=== PATIENT | female | born 1940 | race Caucasian/White ===

== ENCOUNTER → 2017-02-10 20:34 | Outpatient (CLI) | payer MEDICARE, MEDICAID ==
[2016-05-27 00:41] VITALS: BMI 21.8
[~2017-02-10 20:34] MED LIST: AMBIEN5 MG PO; ASPIRIN81 MG PO; BACTRIM DS TABL1 TAB PO; BAYER CHEWABLE81 MG PO; BENTYL 20 MG TA20 MG PO; BETAPACE 120 M120 MG PO; CALCIUM 600 +1 EAC3 PO; CELEXA40 MG PO; CODEINE; DIFLUCAN100 MG PO; DYAZIDE 37.5/251 CAP PO; ELIQUIS2.5 MG PO; HYDROCODON-ACE1 EAC7 PO; K-DUR20 MEQ PO; KLOR-CON M2020 MEQ PO; LASIX40 MG PO; LEVAQUIN750 MG PO; LOMOTIL TABLET1 TAB PO; LOPRESSOR25 MG PO; MECLIZINE HCL25 MG PO; MOBIC7.5 MG PO; NEURONTIN 300300 MG PO; NORVASC10 MG PO; PERCOCET 10/3251 TA1 PO; PLAVIX75 MG PO; PRILOSEC20 MG PO; PROTONIX40 MG PO; QUESTRAN PACK4 G/PKT PO; RESTORIL15 MG PO; SYNTHROID125 MCG PO; TOPAMAX25 MG PO; TRIAMTERENE-HCT1 TA1 PO; TYLENOL #4 W/CO1 TAB PO; ZOFRAN4 MG PO
== END | disposition home or self-care (01) ==
LOC: D.LABREF 20:34
DX: M25.512 Pain in left shoulder (principal); Z11.8 Encounter for screening for other infectious and parasitic diseases

== ENCOUNTER 2017-03-02 05:15 | Inpatient (IN) | payer MEDICARE, MEDICAID ==
[2017-02-26 14:12] LABS: APPEARANCE CLEAR (CLEAR); BILIRUBIN NEGATIVE (NEGATIVE); COLOR YELLOW (YELLOW); GLUCOSE NEGATIVE (NEGATIVE); KETONE NEGATIVE (NEGATIVE); LEUKOCYTE ESTERASE NEGATIVE (NEGATIVE); NITRITE NEGATIVE (NEGATIVE); PROTEIN NEGATIVE (NEGATIVE); SPECIFIC GRAVITY 1.015 (1.005-1.020); UROBILINOGEN NORMAL (NORMAL)
[2017-02-26 14:37] LABS: BASOPHILS 0.2 % (0-2); EOSINOPHILS 4.6 % (0-7); HEMATOCRIT 33.8 % (36.0-48.0); HEMOGLOBIN 10.8 g/dL (12-16); IMMATURE GRANULOCYTES 0.5 % (0-5); LYMPHOCYTES 16.9 % (15-50); MCH 31.3 pg (26.0-34.0); MEAN PLATELET VOLUME 10.2 fL (7.4-10.4); NEUTROPHILS 68.8 % (40-80); RBC 3.45 10x6/uL (4.00-5.40); RDW 14.4 % (11.5-14.5); WBC 8.1 10x3/uL (4.8-10.8)
[2017-02-26 14:44] LABS: ANION GAP 11.3 mmol/L (8-16); CALCIUM 8.4 mg/dL (8.5-10.1); CARBON DIOXIDE 27.2 mmol/L (21.0-32.0); CREATININE - SERUM 1.5 mg/dL (0.6-1.3); POTASSIUM - SERUM 4.5 mmol/L (3.5-5.1)
[2017-02-26 14:46] LABS: APTT 23.9 SECONDS (22.8-39.4); INR 1.02 (0.85-1.17); PROTIME 13.3 SECONDS (11.6-15.0)
[2017-02-26 14:53] LABS: PLATELET COUNT 314 10x3/uL (130-400)
[~2017-03-02] VITALS: Ht 149.9 cm; Wt 61.4 kg
[2017-03-02] VITALS (12 sets, daily range): BP systolic 124–163; BP diastolic 50–87; Ht 149.9 cm; Wt 61.4 kg
[~2017-03-02 05:15] MED LIST changes: +CARAFATE1 G PO; +REQUIP0.5 MG PO; +ZANAFLEX4 MG PO
--- NOTE | 2017-03-02 07:45 | NUR ---
0745 NO CHANGES IN HISTORY SINCE PRE-ASSESSMENT
--- NOTE | 2017-03-02 11:16 | NUR ---
CARDIAC RYTHM APPEARS NOW PACED
--- NOTE | 2017-03-02 11:21 | NUR ---
PRE OP BP 160/90
--- NOTE | 2017-03-02 12:22 | NUR ---
SET PATIENT UP FOR LUNCH. CHOPPED HER CHICKEN. PATIENT DENIES NEEDS. BED ALARM ON. SITTING UP AT A 90 DEGREE ANGLE IN BED. SCD TO RIGHT LEG.
--- NOTE | 2017-03-02 19:00 | NUR ---
PATIENT SLEEPING SUPINE IN BED. HOB 30 DEGREES. RR EVEN AND UNLABORED. O2 @ 2L VIA NC. 0 S/S OF DISTRESS. DRESSING TO LEFT SHOULDER CDI WITH SLING TO LUE. CONT. PULSE OX ON. RIBEIRO SECURED WITH STATLOCK AND DRAINING TO GRAVITY. IV TO RIGHT HAND PATENT WITH NO REDNESS OR SWELLING. SCD TO RLE. B/A ON. SRX2. BED LOW. CALL LIGHT WITHIN REACH.
--- NOTE | 2017-03-02 23:30 | NUR ---
ASSESSMENT COMPLETE. NIGHTTIME MEDS GIVEN.
[2017-03-03] VITALS (7 sets, daily range): BP systolic 110–143; BP diastolic 51–62
--- NOTE | 2017-03-03 01:30 | NUR ---
NORCO GIVEN FOR AN 05/28. WILL REASSESS.
--- NOTE | 2017-03-03 06:40 | NUR ---
MORNING MEDS GIVEN. NORCO GIVEN FOR PAIN. NO OTHER NEEDS AT THIS TIME.
--- NOTE | 2017-03-03 07:15 | NUR ---
PATIENT RECEIVED IN MID [place] POSITION RESTING WITH EYES CLOSED. RESPIRATIONS EVEN AND UNLABORED. SIDE RAILS UP X2. BED IN LOW POSITION. CALL LIGHT IN REACH.
--- NOTE | 2017-03-03 08:23 | NUR ---
PATIENT SITTING UP ON SIDE OF BED EATING BREAKFAST. TOLERATING WELL. SCHEDULED MEDICATION ADMINISTERED. IV TO RIGHT SALINE LOCKED PER ORDERS. DENIES NEEDS. BED IN LOW POSITION. CALL LIGHT IN REACH.
--- NOTE | 2017-03-03 11:05 | NUR ---
PATIENT SITTING UP IN CHAIR AT BEDSIDE. RESTING WITH EYES CLOSED. RESPIRATIONS EVEN AND UNLABORED. WAKES EASY. SCHEDULED MEDICATION ADMINISTERED. CALL LIGHT IN REACH. DENIES NEEDS.
--- NOTE | 2017-03-03 14:00 | NUR ---
PATIENT ALERT IN BED. NO SIGNS OF DISTRESS NOTED. C/O PAIN 06/28. NORCO PER PRN ORDER. RIGHT HAND IV FLUSHED PER ORDERS. IV PATENT. NO REDNESS OR INFLAMMATION NOTED. FLUSHES EASY. WELL TOLERATED. SIDE RAILS UP X2. BED IN LOW POSITION. CALL LIGHT IN REACH. WILL CONTINUE TO MONITOR.
--- NOTE | 2017-03-03 16:20 | NUR ---
PATIENT IN BED RESTING QUIETLY WITH EYES CLOSED. RESPIRATIONS EVEN AND UNLABORED. SIDE RAILS UP X2. BED IN LOW POSITION. CALL LIGHT IN REACH.
--- NOTE | 2017-03-03 16:54 | NUR ---
Patient Name: JOAO HOLDER Admission Status: Elective Accout number: [id number] Admission Date: 03-02-2017 : 1939 Admission Diagnosis: Attending: OSMAN Current LOS: 1 Anticipated DC Date: 03-05-2017 Planned Disposition: [facility] Facility Primary Insurance: [employer] MEDICARE ADV Discharge Planning Comments: CM MET WITH PATIENT. PT STATES SHE LIVE AT HOME WITH HER SON SHAYY CAMACHO AND MARY BEARD ([phone]) ONE OF WHICH WHO WILL DRIVE PT HOME. PT STATES THAT SHE HAS A RAMP TO HER HOUSE. SHE CURRENTLY HAS A LEFT LEG PROSTHETIC ALONG WITH A WALKER, SHOWER CHAIR, ELEVATED TOILET SEAT. PT IS DIABETIC AND STATES SHE HAS AND KNOW HOW TO USE THE GLUCOMETER. PT SIGNED THE JUN FORM WITH [facility] AND THE JUN FORM FOR [facility]. [facility]CP [facility] WILL CONTINUE TO FOLLOW WITH DC NEEDS AND PLANS. PCP: [facility] GO [address] [place] [address] [phone] SHAYY CAMACHO (SON) KISHA CAMACHO (MARY) [phone] Service Car Operator:CATRINA BIRCH Is the patient Alert and Oriented? Yes 0 * How many steps to enter\exit or inside your home? RAMP 0 * PCP DR ESPAÑA 0 * Pharmacy [facility] [address] * Preadmission Environment Home with Family 0 * ADLs Partial Dependent 0 * Partial ADLs (Assistance needed) Ambulation Bathing Dressing Medication Management Toileting 0 * Equipment Elevated [place] Seat Glucometer Other Rolling Walker Shower Chair 0 * Other Equipment PROSTHETIC LEFT LEG 0 * List name and contact numbers for known caregivers / representatives who currently or will assist patient after discharge: SHAYY CAMACHO (SON) MARY - KISHA CAMACHO [phone] 0 * Community resources currently utilized None 0 * Additional services required to return to the preadmission environment? Yes 0 * Can the patient safely return to the preadmission environment? No 0 * Has this patient been hospitalized within the prior 30 days at any hospital? No 0
--- NOTE | 2017-03-03 19:00 | NUR ---
PATIENT SLEEPING SUPINE IN BED. HOB 30 DEGREES. RR EVEN AND UNLABORED. 0 S/S OF DISTRESS. SLING TO LUE WITH DRESSING CDI. RIBEIRO SECURED WITH STATLOCK AND DRAINING TO GRAVITY. CONT. PULSE OX ON. TELEMETRY ON. SCD TO RLE. IV TO RIGHT HAND S/L WITH NO REDNESS OR SWELLING. B/A ON. SRX2. BED LOW. CALL LIGHT WITHIN REACH.
--- NOTE | 2017-03-03 21:00 | NUR ---
PATIENT AROUSES TO VOICE. NIGHTTIME MEDS GIVEN. DENIES ANY OTHER NEEDS.
--- NOTE | 2017-03-04 03:10 | NUR ---
NORCO GIVEN FOR PAIN. WILL REASSESS.
[2017-03-04 06:30] VITALS: BP 132/51
--- NOTE | 2017-03-04 07:41 | NUR ---
AWAKE AND ALERT. ORIENTED X3. NO C/O AT THIS TIME. REPORTS LEFT SHOULDER IS VERY SORE AND PAINFULL. LUNGS ARE CLEAR BILATERALLY, NO COUGH NOTED. REPORTS PRODUCTIVE COUGH. WILL MONITOR. SKIN IS INTACT WITHOUT REDNESS EXCEPT INCISION TO LEFT SHOULDER WHICH HAS A DRY INTACT DRESSING IN PLACE. NEURO CHECKS WNL.V TO RIGHT HAND IS PATENT WITHOUT REDNESS AT INSERTION SITE. SCD IN PLACE TO RIGHT LEG. DENIES NEEDS.
[2017-03-04 08:01] VITALS: BP 143/55
[2017-03-04] MEDS ORDERED: HYDROCODONE-APA1 TAB PO (08:11)
--- NOTE | 2017-03-04 10:00 | NUR ---
C/O UPSET STOMACH. ASKED TO HAVE BS CHECKED "IT;S USUALLY HIGH WHEN I FEEL THIS WAY." FSBS 143 AT THIS TIME. WILL CONTINUE TO MONITOR.
--- NOTE | 2017-03-04 10:23 | NUR ---
03/04/2017 10:19 DCP: Discharge Planning Patient Name: JOAO HOLDER Admission Status: Elective Accout number: [id number] Admission Date: 03-02-2017 : 1940 Admission Diagnosis:PAIN DUE TO INTERNAL ORTHOPEDIC PROSTH RONN/SAMANTHA, INPAUL Attending: OSMAN Current LOS: 2 Anticipated DC Date: 03-05-2017 Planned Disposition: Senior Care Facility Primary Insurance: [employer] MEDICARE ADV Discharge Planning Comments: CM MET WITH PT. PT REQUESTING TO GO TO [facility]. [facility] SPOKE TO PRESLEY BARRIOS RN
--- NOTE | 2017-03-04 11:39 | NUR ---
REQUESTED AND GIVNE ONE HYDROCODONE PO FOR C/O LEFT ELBOW PAIN LEVEL 8. WILL MONITOR.
--- NOTE | 2017-03-04 12:30 | NUR ---
SITTING UP IN CHAIR AT BEDSIDE EATING LUNCH. REPORTS GOOD PAIN RELIEF WITH USE OF HYDROCODONE. NO NEEDS NOTED.
[2017-03-04 12:46] VITALS: BP 172/73
--- NOTE | 2017-03-04 14:46 | NUR ---
RESTING QUIETLY IN BED. DENIES NEEDS.
[2017-03-04 16:17] VITALS: BP 144/56
--- NOTE | 2017-03-04 16:45 | NUR ---
REQUESTED AND GIVEN ONE HYDROCODONE PO FOR C/O LEFT SHOULDER/ELBOW PAIN LEVEL 6. WILL MONITOR.
--- NOTE | 2017-03-04 19:13 | NUR ---
ATE ONLY A SMALL AMOUNT OF SUPPER. REPORTED NOT VERY HUNGRY. NO CHANGES NOTED. DENIES NEEDS.
[2017-03-04 20:00] VITALS: BP 135/67
[2017-03-05] VITALS: BP 156/62
[2017-03-05 04:00] VITALS: BP 142/63
[2017-03-05 07:38] VITALS: BP 150/49
--- NOTE | 2017-03-05 08:04 | NUR ---
AWAKE AND ALERT.ORIENTED X3. C/O LEFT SHOULDER PAIN LEVEL 6 THIS AM. GIVEN ONE HYDROCODONE PO FOR SAME. WILL MONITOR. LUNGS ARE CLEAR BILATERALLY, NO COUGH NOTED. SKIN IS INTACT WITHOUT REDNESS EXCEPT INCISION TO LEFT SHOULDER WHICH HAS A DRY INTACT DRESSING IN PLACE. RIBEIRO PATENT WITH CLEAR YELLOW URINE. SLING IMMOBILIZER IN PLACE TO LEFT ARM. SL TO RIGHT HAND PATENT WITHOUT REDNESS AT ISNERTION SITE. DENIES NEEDS.
--- NOTE | 2017-03-05 09:33 | NUR ---
UP WITH PT. AMBULATED IN HALLWAY WITH RW.
--- NOTE | 2017-03-05 12:09 | NUR ---
REQUESTED AND GIVEN ONE HYDROCODONE PO FOR C/O LEFT ARM PAIN LEVEL 6. WILL MONITOR. SITTING UP IN CHAIR AT BEDSIDE.
[2017-03-05 12:22] VITALS: BP 151/52
[2017-03-05 14:46] VITALS: BP 124/55
--- NOTE | 2017-03-05 16:15 | NUR ---
REQUESTED AND GIVEN ONE HYDROCODONE PO FOR C/O LEFT ARM PAIN LEVEL 7. WILL MONITOR.
--- NOTE | 2017-03-05 17:06 | NUR ---
OT NOTE: PT COMPLETED DYNAMIC SITTING BALANCE WITH SBA. PT COMPLETED RUE AROM EXS FOR INCREASED I WITH ADLS. PT COMPLETED BED MOB WITH CGA. PT COMPLETED TRANSFER WITH SBA. THANK YOU, DEYVI CALERO/Tahira
--- NOTE | 2017-03-05 18:09 | NUR ---
ATE ALL OF SUPPER WITH SET UP ASSISTANCE. NO C/O AT THIS TIME. DENIES NEEDS. NO CHANGES NOTED.
--- NOTE | 2017-03-05 19:30 | NUR ---
PT RECEIVED SITTING UP IN BED WATCHING TELEVISION. PT DENIES NEEDS AT THIS TIME. CALL LIGHT AND H2O IN PT REACH. BED IN LOW POSITION. SIDE RAILS UP X2.
[2017-03-05 20:00] VITALS: BP 144/57
--- NOTE | 2017-03-05 22:46 | NUR ---
PT IS ALERT AND ORIENTED, ABLAE TO VERBALIZE NEEDS. SHE HAS A LEFT SHOULDER DRESSING FROM A ROTATOR REPAIR, SLING IN PLACE. AT THIS TIME SHE IS EATING PUDDING AND WATCHING TV. THE BED IS LOW, RAILS UP X'S 2 WITH THE CALL LIGHT AT HAND. NO NEEDS NOTED.
[2017-03-06] VITALS: BP 135/90
--- NOTE | 2017-03-06 01:30 | NUR ---
PT IV PULLED OUT. PT STATES, "I WAS TRYING TO READJUST AND IT JUST CAME OUT." PRESSURE APPLIED AND DRESSING PLACED. PT REQUESTS NOT TO HAVE IV RESITED AT THIS TIME D/T NO IV FLUIDS OR MEDS ORDERED AT THIS TIME.
[2017-03-06 04:00] VITALS: BP 131/52
[2017-03-06 07:51] VITALS: BP 147/60
--- NOTE | 2017-03-06 08:20 | NUR ---
AWAKE AND ALERT. ORIENTED X3. NO C/O AT THIS TIME. LUNGS ARE CLEAR BILATERALLY, NO COUGH NOTED. SKIN IS INTACT WITHOUT REDNESS EXCEPT INCISION TO LEFT SHOULDER WHICH HAS A DRY INTACT DRESSING IN PLACE. NO IV AT THIS TIME. SCD IN PLACE TO RIGHT LEG. DENIES NEEDS. BREAKFAST SERVED IN ROOM.
--- NOTE | 2017-03-06 10:31 | NUR ---
ASSISTED WITH BATH AND LINEN CHANGE PER STAFF. DENIES NEEDS.
[2017-03-06 12:00] VITALS: BP 156/67
--- NOTE | 2017-03-06 14:55 | NUR ---
CM REASSESSMENT NOTE: PATIENT IS DISCHARGING TO [facility] TO A SKILLED BED BY FACILITY [facility] TODAY.
--- NOTE | 2017-03-06 15:25 | NUR ---
REPORT CALLED TO JOHN EID RN AT [facility]. ALL QUESTIONS ANSWERED. DRESSING TO LEFT SHOULDER CHANGED PRIOR TO D/C. INCISION IS CLEAN DRY AND WELL APPROXIMATED WITH CLLIPS INTACT. DISCHARGED TO [facility] VIA THEIR TRANSPORT.
--- NOTE | 2017-03-07 14:20 | OP ---
PATIENT NAME: JOAO HOLDER MEDICAL RECORD: [id number] :39 LOCATION:D.MS [id number] ADMISSION DATE:03/02/17 SURGEON: ALISHA JENKINS MD DATE OF OPERATION: 03/02/2017 PREOPERATIVE DIAGNOSIS: Painful left total shoulder arthroplasty. POSTOPERATIVE DIAGNOSIS: Painful left total shoulder arthroplasty. PROCEDURE: Revision of total shoulder arthroplasty to reverse total shoulder arthroplasty. SURGEON: Alisha Jenkins MD. ANESTHESIA: General. INTRAOPERATIVE COMPLICATIONS: None. SUMMARY OF PATHOLOGIC FINDINGS: The patient had complete breakdown of her rotator cuff, obviating the need for revision to reverse total shoulder arthroplasty. IMPLANTS USED: Arthrex total shoulder arthroplasty system. IMPLANT REMOVED: Tornier total shoulder. OPERATIVE SUMMARY IN DETAIL: After obtaining the appropriate preoperative orthopedic surgery consents as well as anesthetic consultation, evaluation and clearance, the patient was brought to the operating room and placed on the operating table in supine position. After general laryngeal mask was administered, the patient was placed in the beach chair position. All pressure points were padded. She was held firmly to the operating table using the vacuum pack suction system. Left upper extremity and shoulder were then prepped and draped in routine sterile fashion. The arm was held in Trimano arm holding device. A routine deltopectoral incision was taken down to the level of clavipectoral fascia, which was incised. Of note, the subscapularis and infraspinatus was completely torn all the way back to the teres minor. At this point, the head and stem were removed with little degree of difficulty, no bone loss, as was the glenoid. The glenoid was also removed with little degree of difficulty, no bone loss. Excess cement was removed from behind the previously removed glenoid component. The wound was then irrigated. At this point, central guide pin was placed and the appropriate reaming for the metaglene was done. Preparation for the metaglene was followed by tamping the metaglene into place. Central screw was deployed with good bite as were the peripheral locking screws. Glenosphere was then tamped into place on the baseplate with good locking about the peripheral Franz taper. Attention was then turned to the humerus. Serial and sequential reaming and broaching were done for the long stem, 135-degree, size 6 Arthrex reverse system. Trials were undertaken. Following this, the long stem was cemented into place and then a captured [address]. This resulted in excellent reconstruction. The patient did have an area of looseness about the proximal aspect of the shoulder where she had a fracture. A single Dall-Miles cable was placed about it for rotational stability. This resulted in excellent rotational stability. At this point, the wound was copiously irrigated and closed using #1 Vicryl followed by 2-0 Vicryl and skin alfredo. Sterile dressings were applied. The OPERATIVE REPORT [id number] JOAO HOLDER patient was awakened, taken to recovery room in stable condition. All final needle and sponge counts were correct. TRANSINT:[id number] Voice Confirmation ID: [id number] DOCUMENT ID: [id number] ALICE RAMIREZ, ALISHA GALVAN at 1420 CC: [id number] DICTATION DATE: 03/06/17926 PIGMENT GRINDER: 03/06/17 1258 DIS IN 03/06/17 [facility] [address] [place] [address]
== END 2017-03-06 15:27 | DRG 483 ==
LOC: D.MS 05:15 → D.SDCHOLD 05:15 → D.MS 11:23
PROVIDERS: ADMIT Orthopaedic Surgery
PROC: 0RPJ0JZ Removal of Synthetic Substitute from Right Shoulder Joint, Open Approach (ICD-10-PCS; 2017-03-02)
PROC: 0RRJ00Z Replacement of Right Shoulder Joint with Reverse Ball and Socket Synthetic Substitute, Open Approach (ICD-10-PCS; principal; 2017-03-02 07:45)
DX: T84.84XA Pain due to internal orthopedic prosthetic devices, implants and grafts, initial encounter (principal); I25.10 Atherosclerotic heart disease of native coronary artery without angina pectoris; I12.9 Hypertensive chronic kidney disease with stage 1 through stage 4 chronic kidney disease, or unspecified chronic kidney disease; E11.22 Type 2 diabetes mellitus with diabetic chronic kidney disease; N18.3 Chronic kidney disease, stage 3 (moderate)

== ENCOUNTER → 2017-11-30 11:23 | Outpatient (CLI) | payer MEDICARE, MEDICAID ==
[2017-03-02 11:50] VITALS: BMI 27.3
[~2017-11-30 11:23] MED LIST changes: +HYDROCODONE-APA1 TAB PO
== END | disposition home or self-care (01) ==
LOC: D.CT 11:23
DX: M53.3 Sacrococcygeal disorders, not elsewhere classified (principal)

== ENCOUNTER 2018-01-08 13:33 | Inpatient (IN) | payer MEDICARE, MEDICAID ==
[~2018-01-08] VITALS: Ht 139.7 cm; Wt 62.1 kg
[2018-01-08 14:12] LABS: BASOPHILS 0.1 % (0-2); EOSINOPHILS 0 % (0-7); HEMATOCRIT 34.8 % (36.0-48.0); HEMOGLOBIN 11.1 g/dL (12-16); IMMATURE GRANULOCYTES 0.5 % (0-5); LYMPHOCYTES 11.2 % (15-50); MCH 28.1 pg (26.0-34.0); MCHC 31.9 g/dL (31.0-37.0); MCV 88.1 fL (80.0-100.0); MEAN PLATELET VOLUME 9.8 fL (7.4-10.4); NEUTROPHILS 80.2 % (40-80); RBC 3.95 10x6/uL (4.00-5.40); RDW 15.8 % (11.5-14.5); WBC 9.9 10x3/uL (4.8-10.8)
[2018-01-08 14:31] LABS: PLATELET COUNT 393 10x3/uL (130-400)
[2018-01-08 14:41] LABS: ALBUMIN 3.7 g/dL (3.4-5.0); ALKALINE PHOSPHATASE 176 U/L (46-116); ALT (SGPT) 27 U/L (10-68); BILIRUBIN - TOTAL 0.77 mg/dL (0.2-1.3); CALC OSMOLALITY 267 mosm/kg (275-300); CALCIUM 8.9 mg/dL (8.5-10.1); CARBON DIOXIDE 29.6 mmol/L (21.0-32.0); CHLORIDE - SERUM 98 mmol/L (98-107); CREATININE - SERUM 1.2 mg/dL (0.6-1.3); GLUCOSE 104 mg/dL (74-106); POTASSIUM - SERUM 3.3 mmol/L (3.5-5.1); PROTEIN - SERUM 7.8 g/dL (6.4-8.2); SODIUM 133 mmol/L (136-145); UREA NITROGEN 18 mg/dL (7-18); eGFR NON AFRICAN AMERICAN 46 mL/min (90-120)
[2018-01-08 14:51] LABS: AMYLASE - SERUM 54 U/L (25-115); CKMB 0.8 U/L (0.0-3.6); LIPASE 203 U/L (73-393); MAGNESIUM - SERUM 2.2 mg/dL (1.8-2.4)
[2018-01-08 14:52] LABS: TROPONIN-I < 0.017 ng/mL (0.000-0.060)
[2018-01-08 15:23] LABS: APPEARANCE CLEAR (CLEAR); BILIRUBIN NEGATIVE (NEGATIVE); COLOR YELLOW (YELLOW); GLUCOSE NEGATIVE (NEGATIVE); KETONE NEGATIVE (NEGATIVE); NITRITE NEGATIVE (NEGATIVE); PROTEIN TRACE mg/dL (NEGATIVE); UROBILINOGEN NORMAL (NORMAL)
[2018-01-08 15:26] LABS: BACTERIA FEW /hpf (NONE SEEN)
[2018-01-08 21:47] VITALS: BP 165/67
[2018-01-08 22:21] VITALS: BP 165/67; BMI 31.9
[2018-01-09 02:19] VITALS: BP 165/67
[2018-01-09 04:52] LABS: BASOPHILS 0.1 % (0-2); EOSINOPHILS 0.1 % (0-7); HEMATOCRIT 31.7 % (36.0-48.0); HEMOGLOBIN 10.1 g/dL (12-16); IMMATURE GRANULOCYTES 0.7 % (0-5); LYMPHOCYTES 10.4 % (15-50); MCH 27.7 pg (26.0-34.0); MCHC 31.9 g/dL (31.0-37.0); MCV 87.1 fL (80.0-100.0); MEAN PLATELET VOLUME 10.3 fL (7.4-10.4); MONOCYTES 10.6 % (2-11); NEUTROPHILS 78.1 % (40-80); PLATELET COUNT 375 10x3/uL (130-400); RBC 3.64 10x6/uL (4.00-5.40); RDW 15.8 % (11.5-14.5); WBC 10.3 10x3/uL (4.8-10.8)
[2018-01-09 05:16] LABS: ALBUMIN 3.2 g/dL (3.4-5.0); ANION GAP 13.8 mmol/L (8-16); BILIRUBIN - TOTAL 0.69 mg/dL (0.2-1.3); CALCIUM 8.5 mg/dL (8.5-10.1); CARBON DIOXIDE 24.2 mmol/L (21.0-32.0); CREATININE - SERUM 1.2 mg/dL (0.6-1.3)
[2018-01-09 06:04] VITALS: BP 164/61
[2018-01-09 07:05] VITALS: BP 183/69
[2018-01-09 10:57] LABS: PHOSPHOROUS 3.6 mg/dL (2.5-4.9)
[2018-01-09 11:02] VITALS: BP 188/62
[2018-01-09 14:12] VITALS: Ht 139.7 cm; Wt 62.1 kg
[2018-01-09 15:00] VITALS: BP 178/62
[2018-01-09 22:04] VITALS: BP 182/72
[2018-01-10 00:46] VITALS: BP 120/43
[2018-01-10 05:19] VITALS: BP 149/64
[2018-01-10 06:15] LABS: BASOPHILS 0.1 % (0-2); EOSINOPHILS 0.1 % (0-7); HEMATOCRIT 29.3 % (36.0-48.0); HEMOGLOBIN 9.2 g/dL (12-16); IMMATURE GRANULOCYTES 0.7 % (0-5); LYMPHOCYTES 18.7 % (15-50); MCH 27.7 pg (26.0-34.0); MCHC 31.4 g/dL (31.0-37.0); MCV 88.3 fL (80.0-100.0); MEAN PLATELET VOLUME 9.8 fL (7.4-10.4); MONOCYTES 11.9 % (2-11); NEUTROPHILS 68.5 % (40-80); PLATELET COUNT 309 10x3/uL (130-400); RBC 3.32 10x6/uL (4.00-5.40)
[2018-01-10 06:19] LABS: WBC 6.8 10x3/uL (4.8-10.8)
[2018-01-10 06:35] LABS: ALBUMIN 2.9 g/dL (3.4-5.0); ANION GAP 13.3 mmol/L (8-16); BILIRUBIN - TOTAL 0.57 mg/dL (0.2-1.3); CALCIUM 8.3 mg/dL (8.5-10.1); CARBON DIOXIDE 20.9 mmol/L (21.0-32.0); CREATININE - SERUM 1.2 mg/dL (0.6-1.3); POTASSIUM - SERUM 3.2 mmol/L (3.5-5.1); PROTEIN - SERUM 6.2 g/dL (6.4-8.2)
[2018-01-10 08:08] VITALS: BP 155/43
[2018-01-10 11:52] VITALS: BP 164/47
[2018-01-10 15:29] VITALS: BP 194/61
[2018-01-10 20:00] VITALS: BP 144/57
[2018-01-11 04:00] VITALS: BP 187/56
[2018-01-11 04:34] LABS: BASOPHILS 0.3 % (0-2); EOSINOPHILS 0.4 % (0-7); HEMATOCRIT 28.1 % (36.0-48.0); HEMOGLOBIN 8.9 g/dL (12-16); IMMATURE GRANULOCYTES 0.5 % (0-5); LYMPHOCYTES 10.9 % (15-50); MCH 27.8 pg (26.0-34.0); MCHC 31.7 g/dL (31.0-37.0); MCV 87.8 fL (80.0-100.0); MEAN PLATELET VOLUME 10.3 fL (7.4-10.4); MONOCYTES 10.3 % (2-11); NEUTROPHILS 77.6 % (40-80); PLATELET COUNT 289 10x3/uL (130-400); WBC 7.8 10x3/uL (4.8-10.8)
[2018-01-11 05:05] LABS: ANION GAP 15.5 mmol/L (8-16); BILIRUBIN - TOTAL 0.54 mg/dL (0.2-1.3); CARBON DIOXIDE 18.8 mmol/L (21.0-32.0); CREATININE - SERUM 1.1 mg/dL (0.6-1.3); POTASSIUM - SERUM 3.3 mmol/L (3.5-5.1); PROTEIN - SERUM 6.2 g/dL (6.4-8.2)
[2018-01-11 08:39] VITALS: BP 153/80
[2018-01-11 12:05] VITALS: BP 178/44
[2018-01-11 16:45] VITALS: BP 123/51
[2018-01-11 20:49] VITALS: BP 195/66
[2018-01-12 04:00] VITALS: BP 111/63
[2018-01-12 04:38] LABS: BASOPHILS 0.3 % (0-2); EOSINOPHILS 0.4 % (0-7); HEMATOCRIT 28.3 % (36.0-48.0); HEMOGLOBIN 8.9 g/dL (12-16); IMMATURE GRANULOCYTES 0.8 % (0-5); LYMPHOCYTES 14.8 % (15-50); MCH 27.6 pg (26.0-34.0); MCHC 31.4 g/dL (31.0-37.0); MCV 87.6 fL (80.0-100.0); MEAN PLATELET VOLUME 10.6 fL (7.4-10.4); MONOCYTES 7.7 % (2-11); PLATELET COUNT 274 10x3/uL (130-400); RBC 3.23 10x6/uL (4.00-5.40); RDW 16.1 % (11.5-14.5); WBC 7.3 10x3/uL (4.8-10.8)
[2018-01-12 05:18] LABS: % SATURATION 33 % (15-55); IRON 91 ug/dl (35-150); TOTAL IRON BIND CAPACITY 268 ug/dl (260-445); UNSAT IRON BIND CAPACITY 177 ug/dl (150-375)
[2018-01-12 05:27] LABS: ALBUMIN 2.8 g/dL (3.4-5.0); ANION GAP 18.5 mmol/L (8-16); BILIRUBIN - TOTAL 0.4 mg/dL (0.2-1.3); CALCIUM 8.2 mg/dL (8.5-10.1); PROTEIN - SERUM 6.2 g/dL (6.4-8.2)
[2018-01-12 05:34] LABS: POTASSIUM - SERUM 3.5 mmol/L (3.5-5.1)
[2018-01-12 09:01] VITALS: BP 149/66
[2018-01-12 12:27] VITALS: BP 198/72
[2018-01-12 16:03] VITALS: BP 167/60
[2018-01-12 22:06] VITALS: BP 167/60
[2018-01-13 05:03] VITALS: BP 161/58
[2018-01-13 07:14] LABS: BASOPHILS 0.1 % (0-2); EOSINOPHILS 0.9 % (0-7); HEMATOCRIT 28.6 % (36.0-48.0); HEMOGLOBIN 9.1 g/dL (12-16); IMMATURE GRANULOCYTES 0.8 % (0-5); MCH 27.5 pg (26.0-34.0); MCHC 31.8 g/dL (31.0-37.0); MCV 86.4 fL (80.0-100.0); MEAN PLATELET VOLUME 10.3 fL (7.4-10.4); MONOCYTES 9.6 % (2-11); NEUTROPHILS 76.6 % (40-80); PLATELET COUNT 306 10x3/uL (130-400); RBC 3.31 10x6/uL (4.00-5.40); RDW 16.3 % (11.5-14.5)
[2018-01-13 07:24] LABS: WBC 9.2 10x3/uL (4.8-10.8)
[2018-01-13 07:35] LABS: ALBUMIN 2.8 g/dL (3.4-5.0); ANION GAP 13.8 mmol/L (8-16); BILIRUBIN - TOTAL 0.4 mg/dL (0.2-1.3); CARBON DIOXIDE 19.3 mmol/L (21.0-32.0); POTASSIUM - SERUM 3.1 mmol/L (3.5-5.1)
[2018-01-13 09:22] VITALS: BP 188/71
[2018-01-13] MEDS ORDERED: FLAGYL 500500 MG/100 IV (11:50)
[2018-01-13] MEDS ORDERED: LEVAQUIN750 MG PO (11:50)
[2018-01-13] MEDS ORDERED: FLAGYL500 MG PO (12:27)
[2018-01-13 12:44] VITALS: BP 174/67
[2018-01-15 03:10] LABS: OVA + PARASITE EXAM Final report (())
[2018-01-17 19:07] LABS: AEROBE ID Final report (())
== END 2018-01-13 14:39 | disposition home or self-care (01) | DRG 392 ==
LOC: D.ER 13:33 → D.EDHOLD 19:10 → OBSVTIME 19:10 → D.MS 19:51
PROVIDERS: Family Medicine; Family Medicine Adult Medicine; Internal Medicine Gastroenterology
DX: K52.9 Noninfective gastroenteritis and colitis, unspecified (principal); E11.22 Type 2 diabetes mellitus with diabetic chronic kidney disease; I12.9 Hypertensive chronic kidney disease with stage 1 through stage 4 chronic kidney disease, or unspecified chronic kidney disease; N18.3 Chronic kidney disease, stage 3 (moderate); F41.8 Other specified anxiety disorders; D64.9 Anemia, unspecified; E86.0 Dehydration; E03.9 Hypothyroidism, unspecified; E87.6 Hypokalemia; K59.00 Constipation, unspecified; I25.10 Atherosclerotic heart disease of native coronary artery without angina pectoris; Z96.641 Presence of right artificial hip joint; R91.1 Solitary pulmonary nodule; K64.9 Unspecified hemorrhoids

== ENCOUNTER 2018-04-29 09:30 | Day surgery (SDC) | payer MEDICARE, MEDICAID ==
[2018-04-28 16:03] LABS: HEMATOCRIT 34.8 % (36.0-48.0); HEMOGLOBIN 11.1 g/dL (12-16); MCH 28.7 pg (26.0-34.0); MCHC 31.9 g/dL (31.0-37.0); MCV 89.9 fL (80.0-100.0); MEAN PLATELET VOLUME 9.8 fL (7.4-10.4); RBC 3.87 10x6/uL (4.00-5.40); RDW 15.6 % (11.5-14.5); WBC 8.4 10x3/uL (4.8-10.8)
[2018-04-28 16:13] LABS: ANION GAP 12.4 mmol/L (8-16); CALCIUM 8.1 mg/dL (8.5-10.1); CARBON DIOXIDE 27.8 mmol/L (21.0-32.0); CREATININE - SERUM 1.3 mg/dL (0.6-1.3); POTASSIUM - SERUM 3.2 mmol/L (3.5-5.1)
[~2018-04-29] VITALS: Ht 144.8 cm; Wt 59.9 kg
--- NOTE | ~2018-04-29 | OP ---
PATIENT NAME: JOAO HOLDER MEDICAL RECORD: [id number] :39 LOCATION:D.OPS ADMISSION DATE: SURGEON: ALISHA JENKINS MD DATE OF OPERATION: 04/29/2018 PREOPERATIVE DIAGNOSES: Trigger finger of the left hand index finger, trigger finger of the left hand ring finger, trigger finger of the left hand small finger. POSTOPERATIVE DIAGNOSES: Trigger finger of the left hand index finger, trigger finger of the left hand ring finger, trigger finger of the left hand small finger. PROCEDURE: Trigger finger releases of the above. SURGEON: Alisha Jenkins MD ANESTHESIA: General. INTRAOPERATIVE COMPLICATIONS: None. SUMMARY OF PATHOLOGIC FINDINGS: Consistent with preoperative diagnosis, examination of the patient had triggering at the left index, fourth and fifth digit with some excoriated changes of the flexor tendon, but no full thickness tearing. OPERATIVE SUMMARY IN DETAIL: After obtaining the appropriate preoperative orthopedic surgery consent as well as anesthetic consultation, evaluation and clearance, the patient was brought to the operating room and placed on operating table in supine position. After general laryngeal mask airway was administered, tourniquet was placed on the proximal aspect of the left upper extremity. Left upper extremity was then prepped and draped in routine sterile fashion. The arm was elevated and exsanguinated. Tourniquet was inflated to 250 mmHg. Index finger was approached first. A small incision was made at the base of the index MCP joint. This incision was taken directly down to the A1 olivia, identified and incised. Attention was then turned to the 4th. Again, a small incision made at the base of the MCP joint, taken down. The A1 olivia was identified and excised, and lastly a small incision was made at the base of the fifth MCP joint. This was dissected down to the A1 olivia and it was also incised. All tendons were inspected, findings as noted above. Care was taken to avoid the digital nerves with each of the three A1 olivia releases. These wounds were then irrigated and closed with 4-0 Prolene. All incisions were then locally infiltrated with 0.25% Marcaine plain. Sterile dressings were applied. Tourniquet was deflated. The patient was awakened and taken to the recovery room in stable condition. All final needle, instrument and sponge counts were correct. TRANSINT:[id number] Voice Confirmation ID: [id number] DOCUMENT ID: [id number] OPERATIVE REPORT [id number] JOAO HOLDER MD, ALISHA GALVAN at 1150 CC: [id number] DICTATION DATE: 04/29/18 1545 LOCOMOTIVE OBSERVER: 04/29/18 1753 [facility] 04/29/18 [place] [id number] [place] [id number]
[~2018-04-29 09:30] MED LIST changes: +FLAGYL 500500 MG/100 IV; +FLAGYL500 MG PO
[2018-04-29 10:19] VITALS: BP 127/71; Ht 144.8 cm; Wt 59.9 kg
[2018-04-29] MEDS ORDERED: HYDROCODONE-APA1 TAB PO (12:45)
== END 2018-04-29 14:30 | disposition home or self-care (01) ==
LOC: D.OPS 09:30 → D.PAN 11:30 → D.OPS 14:30
PROVIDERS: Anesthesiology
DX: M65.322 Trigger finger, left index finger (principal); M65.342 Trigger finger, left ring finger; M65.352 Trigger finger, left little finger; Z01.812 Encounter for preprocedural laboratory examination

== ENCOUNTER → 2019-01-05 14:26 | Outpatient (CLI) | payer MEDICARE, MEDICAID ==
[2018-04-29 10:19] VITALS: BMI 28.6
== END | disposition home or self-care (01) ==
LOC: D.CT 14:26
PROVIDERS: ATTEND Orthopaedic Surgery
DX: G99.2 Myelopathy in diseases classified elsewhere (principal)

== ENCOUNTER 2019-01-12 20:39 | Inpatient (IN) | payer MEDICARE, MEDICAID ==
[~2019-01-12] VITALS: Ht 144.8 cm; Wt 59.9 kg
[2019-01-12 21:31] LABS: APPEARANCE HAZY (CLEAR); BILIRUBIN NEGATIVE (NEGATIVE); COLOR YELLOW (YELLOW); GLUCOSE NEGATIVE (NEGATIVE); KETONE NEGATIVE (NEGATIVE); NITRITE POSITIVE (NEGATIVE); PROTEIN 1+ mg/dL (NEGATIVE); SPECIFIC GRAVITY 1.015 (1.005-1.020); UROBILINOGEN NORMAL (NORMAL)
[2019-01-12 21:32] LABS: BACTERIA MANY /hpf (NONE SEEN); EPITHELIAL CELLS 0-5 /hpf (0-5); RED CELLS - URINE 0-5 /hpf (0-5); WHITE CELLS - URINE >50 /hpf (0-5)
[2019-01-12 21:50] LABS: HEMATOCRIT 27.3 % (36.0-48.0); HEMOGLOBIN 8.8 g/dL (12-16); MCH 29.6 pg (26.0-34.0); MCHC 32.2 g/dL (31.0-37.0); MCV 91.9 fL (80.0-100.0); PLATELET COUNT 319 10x3/uL (130-400); RBC 2.97 10x6/uL (4.00-5.40); RDW 15.7 % (11.5-14.5); WBC 19.8 10x3/uL (4.8-10.8)
[2019-01-12 21:59] LABS: ALBUMIN 2.6 g/dL (3.4-5.0); ANION GAP 15.2 mmol/L (8-16); BILIRUBIN - TOTAL 0.61 mg/dL (0.2-1.3); CALCIUM 7.9 mg/dL (8.5-10.1); CARBON DIOXIDE 21.2 mmol/L (21.0-32.0); CREATININE - SERUM 1.4 mg/dL (0.6-1.3); POTASSIUM - SERUM 3.4 mmol/L (3.5-5.1); PROTEIN - SERUM 6.8 g/dL (6.4-8.2)
[2019-01-12 22:10] LABS: EOSINOPHILS 3 % (0-7); LYMPHOCYTES 7 % (15-50); MONOCYTES 1 % (2-11); NEUTROPHILS 83 % (40-80); PLATELET ESTIMATE NORMAL
--- NOTE | 2019-01-13 00:45 | NUR ---
RECIEVED TO FLOOR AT 0015. ACCOMPANIED BY HOSPITAL STAFF. A&O X 4. DENIES PAIN. REPORTS MILD HEADACHE, BUT REFUSES ACETAMINOPHEN. WILL CONTINUE TO MONITOR.
[2019-01-13 01:14] VITALS: BP 124/52; BMI 28.6
--- NOTE | 2019-01-13 07:30 | NUR ---
PATIENT IN BED WITH IV INTACT. PAIN TO SHOULDER AND NECK. RECIEVING IV MORPHINE. NO COMPLAINTS OR PROBLEMS. CALL LIGHT WITHIN REACH.
--- NOTE | 2019-01-13 09:01 | NUR ---
PATIENT IN BED WITH IV INTACT. USING BP AT THIS TIME. NO COMPLAINTS OR SIGNS OF DISTRESS. CALL LIGHT WITHIN REACH.
[2019-01-13 09:35] VITALS: BP 150/57
[2019-01-13 12:32] VITALS: Ht 144.8 cm; Wt 59.9 kg
[2019-01-13 13:24] VITALS: BP 127/52
[2019-01-13 17:46] VITALS: BP 138/57
[2019-01-13 19:20] LABS: % SATURATION 3 % (15-55); IRON 7 ug/dl (35-150); TOTAL IRON BIND CAPACITY 211 ug/dl (260-445); UNSAT IRON BIND CAPACITY 204 ug/dl (150-375)
[2019-01-13 19:36] LABS: THYROID STIMULATING HORMONE 1.55 uIU/mL (0.36-3.74)
[2019-01-13 20:00] VITALS: BP 117/54
--- NOTE | 2019-01-13 20:30 | NUR ---
PT HAD A LOOSE, WATERY, RED AND BROWN STOOL. DENIES ANY GREASY FOODS, STATES HE BM ARE JUST LIKE THAT. WILL CONTINUE TO MONITOR CLOSELY.
[2019-01-14 04:00] VITALS: BP 165/69
[2019-01-14 05:09] LABS: BASOPHILS 0.1 % (0-2); EOSINOPHILS 0.4 % (0-7); HEMATOCRIT 25.1 % (36.0-48.0); IMMATURE GRANULOCYTES 0.5 % (0-5); LYMPHOCYTES 5.4 % (15-50); MCH 29.2 pg (26.0-34.0); MCHC 31.9 g/dL (31.0-37.0); MCV 91.6 fL (80.0-100.0); MEAN PLATELET VOLUME 10.8 fL (7.4-10.4); MONOCYTES 9.9 % (2-11); NEUTROPHILS 83.7 % (40-80); PLATELET COUNT 291 10x3/uL (130-400); RBC 2.74 10x6/uL (4.00-5.40); RDW 16.1 % (11.5-14.5)
[2019-01-14 05:14] LABS: WBC 13.7 10x3/uL (4.8-10.8)
[2019-01-14 05:55] LABS: ALBUMIN 2.3 g/dL (3.4-5.0); BILIRUBIN - TOTAL 0.33 mg/dL (0.2-1.3); CALCIUM 7.8 mg/dL (8.5-10.1); CARBON DIOXIDE 20.9 mmol/L (21.0-32.0); CREATININE - SERUM 1.1 mg/dL (0.6-1.3); MAGNESIUM - SERUM 1.8 mg/dL (1.8-2.4)
[2019-01-14 05:57] LABS: ANION GAP 15.5 mmol/L (8-16); POTASSIUM - SERUM 4.4 mmol/L (3.5-5.1)
--- NOTE | 2019-01-14 07:31 | NUR ---
I CONCUR WITH TEACHING SUPERVISOR ASSESSMENT.
--- NOTE | 2019-01-14 07:45 | NUR ---
PATIENT IN BED WITH IV INTACT. N O COMPLAINTS OR SIGNS OF DISTRESS. FAMILHY AT BEDSIDE. CALL LIGHT WITHIN REACH.
[2019-01-14 09:57] VITALS: BP 124/64
[2019-01-14 14:20] VITALS: BP 142/64
[2019-01-14] MEDS ORDERED: ZESTRIL20 MG PO (14:32)
[2019-01-14 17:57] VITALS: BP 153/54
--- NOTE | 2019-01-14 18:43 | NUR ---
IV REMOVED BY GENARO ALVARADO. IV NOT WORKING ANYMORE. ALMOST COMPLETELY OUT OF PATIENTS ARM. TRIED TO RESTICK. UNABLE TO FIND VEIN. JAVI WILKINSON TO TRY.
--- NOTE | 2019-01-14 19:15 | NUR ---
RECEIVED CARE FROM DAY NURSE. LYING IN BED WATCHING TV. REPORTS NO NEEDS. NEW IV SITED TO EXTERNAL RIGHT AC BY DAY SHIFT. CALL LIGHT AT SIDE.
--- NOTE | 2019-01-14 19:35 | NUR ---
PATIENT IV RESTARTED IN RIGHT ARM X 1 STICK AT THIS TIME. NO COMPLAINTS OR SIGNS OF DISTRESS. CALL LIGHT WITHIN REACH. REPORT GIVEN TO NIGHT NURSE.
[2019-01-14 20:03] VITALS: BP 155/56
[2019-01-14 23:47] VITALS: BP 141/45
[2019-01-15 04:00] VITALS: BP 140/57
--- NOTE | 2019-01-15 04:59 | NUR ---
I have reviewed this patient and I concur with the Shift Assessment completed by the Licensed Practical Nurse today this shift.
[2019-01-15 05:07] LABS: HEMATOCRIT 24.6 % (36.0-48.0); HEMOGLOBIN 7.8 g/dL (12-16); MCH 29.4 pg (26.0-34.0); MCHC 31.7 g/dL (31.0-37.0); MCV 92.8 fL (80.0-100.0); MEAN PLATELET VOLUME 10.6 fL (7.4-10.4); PLATELET COUNT 281 10x3/uL (130-400); RBC 2.65 10x6/uL (4.00-5.40)
[2019-01-15 05:08] LABS: WBC 6.9 10x3/uL (4.8-10.8)
[2019-01-15 05:28] LABS: BASOPHILS 1 % (0-2); EOSINOPHILS 3 % (0-7); LYMPHOCYTES 17 % (15-50); MONOCYTES 13 % (2-11); NEUTROPHILS 64 % (40-80)
[2019-01-15 05:29] LABS: ALBUMIN 2.2 g/dL (3.4-5.0); ANION GAP 16.2 mmol/L (8-16); BILIRUBIN - TOTAL 0.16 mg/dL (0.2-1.3); CALCIUM 8.2 mg/dL (8.5-10.1); CARBON DIOXIDE 20.1 mmol/L (21.0-32.0); CREATININE - SERUM 1.1 mg/dL (0.6-1.3); MAGNESIUM - SERUM 1.9 mg/dL (1.8-2.4); POTASSIUM - SERUM 4.3 mmol/L (3.5-5.1); PROTEIN - SERUM 6.7 g/dL (6.4-8.2)
[2019-01-15 05:37] LABS: PLATELET ESTIMATE NORMAL
[2019-01-15 07:56] VITALS: BP 143/47
[2019-01-15 09:12] LABS: FOLATE (FOLIC ACID) - SERUM 6.5 ng/mL (>3.0)
[2019-01-15 12:49] VITALS: BP 157/53
[2019-01-15] MEDS ORDERED: BACTRIM 400-801 TAB PO (17:45)
--- NOTE | 2019-01-15 19:15 | NUR ---
RECEIVED CARE FROM DAY NURSE. LYING IN BED WATCHING TV. REPORTS NO NEEDS AT THIS TIME. CALL LIGHT AT SIDE. NO IV.
--- NOTE | 2019-01-15 19:21 | NUR ---
I have reviewed this patient and I concur with the Shift Assessment completed by the Licensed Practical Nurse today this shift.
[2019-01-15 20:02] VITALS: BP 153/54
[2019-01-16 05:07] VITALS: BP 161/53
[2019-01-16 05:47] LABS: BASOPHILS 0.2 % (0-2); HEMATOCRIT 27.9 % (36.0-48.0); HEMOGLOBIN 8.9 g/dL (12-16); IMMATURE GRANULOCYTES 1.8 % (0-5); LYMPHOCYTES 19.2 % (15-50); MCH 29.7 pg (26.0-34.0); MCHC 31.9 g/dL (31.0-37.0); MEAN PLATELET VOLUME 10.8 fL (7.4-10.4); MONOCYTES 14.7 % (2-11); NEUTROPHILS 60.1 % (40-80); PLATELET COUNT 293 10x3/uL (130-400); RDW 15.9 % (11.5-14.5); WBC 6.1 10x3/uL (4.8-10.8)
[2019-01-16 06:25] LABS: ALBUMIN 2.2 g/dL (3.4-5.0); ANION GAP 16.1 mmol/L (8-16); BILIRUBIN - TOTAL 0.52 mg/dL (0.2-1.3); CALCIUM 7.8 mg/dL (8.5-10.1); CARBON DIOXIDE 20.4 mmol/L (21.0-32.0); CREATININE - SERUM 1.3 mg/dL (0.6-1.3); MAGNESIUM - SERUM 1.8 mg/dL (1.8-2.4); POTASSIUM - SERUM 4.5 mmol/L (3.5-5.1); PROTEIN - SERUM 6.4 g/dL (6.4-8.2)
[2019-01-16 08:38] VITALS: BP 170/57
[2019-01-16 13:11] VITALS: BP 174/66
[2019-01-16 17:10] VITALS: BP 178/67
== END 2019-01-16 18:13 | disposition home or self-care (01) | DRG 872 ==
LOC: D.ER 20:39 → D.MS 23:05 → D.EDHOLD 23:05 → D.MS 23:46
PROVIDERS: Emergency Medicine; Family Medicine; ADMIT Internal Medicine Nephrology; ATTEND Internal Medicine Nephrology
DX: A41.9 Sepsis, unspecified organism (principal); N39.0 Urinary tract infection, site not specified; N17.9 Acute kidney failure, unspecified; I10 Essential (primary) hypertension; I25.10 Atherosclerotic heart disease of native coronary artery without angina pectoris; D64.9 Anemia, unspecified; F41.8 Other specified anxiety disorders; I12.9 Hypertensive chronic kidney disease with stage 1 through stage 4 chronic kidney disease, or unspecified chronic kidney disease; N18.3 Chronic kidney disease, stage 3 (moderate)

== ENCOUNTER → 2019-05-26 17:39 | Outpatient (CLI) | payer MEDICARE, MEDICAID ==
[2019-01-13 12:32] VITALS: BMI 28.5
[~2019-05-26 17:39] MED LIST changes: +BACTRIM 400-801 TAB PO; +ZESTRIL20 MG PO
== END | disposition home or self-care (01) ==
LOC: D.LABREF 17:39
PROVIDERS: ATTEND Orthopaedic Surgery
DX: M19.011 Primary osteoarthritis, right shoulder (principal)

== ENCOUNTER 2019-09-02 14:13 | Inpatient (IN) | payer MEDICARE, MEDICAID ==
[~2019-09-02] VITALS: Ht 149.9 cm; Wt 59.4 kg
[2019-09-14] MEDS ORDERED: HYDROCODON-ACE1 EA10 PO (14:09)
[2019-09-14] MEDS ORDERED: FERROUS SULFAT325 MG PO (14:10)
[2019-09-14] MEDS ORDERED: FOLIC ACID1 MG PO (14:11)
[2019-09-14 14:42] LABS: APPEARANCE CLEAR (CLEAR); BILIRUBIN NEGATIVE (NEGATIVE); COLOR YELLOW (YELLOW); GLUCOSE NEGATIVE (NEGATIVE); KETONE NEGATIVE (NEGATIVE); NITRITE NEGATIVE (NEGATIVE); PROTEIN NEGATIVE (NEGATIVE); SPECIFIC GRAVITY 1.005 (1.005-1.020); UROBILINOGEN NORMAL (NORMAL)
[2019-09-14 15:31] LABS: BASOPHILS 0.3 % (0-2); EOSINOPHILS 0.8 % (0-7); HEMATOCRIT 34.3 % (36.0-48.0); HEMOGLOBIN 11.1 g/dL (12-16); IMMATURE GRANULOCYTES 0.8 % (0-5); LYMPHOCYTES 16.6 % (15-50); MCHC 32.4 g/dL (31.0-37.0); MCV 102.1 fL (80.0-100.0); MEAN PLATELET VOLUME 9.9 fL (7.4-10.4); MONOCYTES 7.1 % (2-11); NEUTROPHILS 74.4 % (40-80); RBC 3.36 10x6/uL (4.00-5.40); RDW 13.4 % (11.5-14.5); WBC 7.8 10x3/uL (4.8-10.8)
[2019-09-14 15:32] LABS: PLATELET COUNT 356 10x3/uL (130-400)
[2019-09-14 15:39] LABS: APTT 24.2 SECONDS (22.8-39.4); INR 1.06 (0.85-1.17); PROTIME 13.3 SECONDS (11.6-15.0)
[2019-09-14 15:51] LABS: ANION GAP 13.4 mmol/L (8-16); CARBON DIOXIDE 24.8 mmol/L (21.0-32.0); POTASSIUM - SERUM 4.2 mmol/L (3.5-5.1)
[2019-09-19 08:07] VITALS: BP 158/58; BMI 26.7
--- NOTE | 2019-09-19 12:02 | NUR ---
PLASMA BLADE SET TO 6/8 BOVIE PAD RIGHT FLANK [id number] EXP 12/24/20 TRAFFIC MONITORED IN AND OUT OF ROOM AND KEPT TO A MINIMUM LAMINAR FLOW NOT IN USE PREPPED FROM SHOULDER TO FINGERS CIRCUMFERENTIALLY WITH HIBICLENS AND ALCOHOL DRIED WITH A TOWEL THEN PREPPED WITH CHLORAPREP
[2019-09-19 13:45] VITALS: BP 142/64
[2019-09-19 15:41] VITALS: BP 167/84; BMI 26.5
[2019-09-19 19:30] VITALS: BP 122/44
--- NOTE | 2019-09-19 19:40 | NUR ---
PT SITTING UP IN BED WITHOUT DISTRESS, AOX4. HARD OF HEARING. FAMILY AT BEDSIDE. IV LEFT FA INFUSING 1/2NS @ 75. PAST LLE AMP. RIGHT ARM IN SLING, DRESSING CDI. STATES FEELING IN ARM IS COMING BACK. REQUESTING PAIN MED. GAVE TORADOL ORDERED. BED ALARM ON. DENIES OTHER NEEDS. CL IN REACH, WILL CTM
--- NOTE | 2019-09-19 21:30 | NUR ---
PT STATES PAIN IN RIGHT ARM IS WORSE, GAVE PERCOCET ORDERED. HELPED PT REPOSITIONED TO LEFT SIDE, PILLOW PROPPED UNDER RIGHT ARM. PLACED JENNIFER ICE PACK OVER ARM. DENIES OTHER NEEDS. WILL CTM
--- NOTE | 2019-09-19 23:50 | NUR ---
PT STATES SHE IS STILL HAVING A LOT OF PAIN IN RIGHT ARM. INITIATED DILAUDID SALARY MANAGER, EDUCATED ON USE. VERBALIZED UNDERSTANDING. WILL CTM
[2019-09-20 00:30] VITALS: BP 130/45
--- NOTE | 2019-09-20 00:30 | NUR ---
PT HAS BEEN UNABLE TO VOID SINCE SX. PLACED ON BEDPAN TWO TIMES WITH NO SUCCESS. FEELS LIKE SHE HAS TO VOID. ABD SLIGHTLY DISTENDED, TENDER TO TOUCH. BLADDER SCAN STATES >200ML. EDUCATED PT ON PRN IN AND OUT CATH AFTER SX, VERBALIZED UNDERSTANDING. IN AND OUT CATH PERFORMED WITH SECOND NURSE. RETURN OF 200ML
--- NOTE | 2019-09-20 04:30 | NUR ---
AID STATES PT BP IS 90/30S. THIS NURSE TURNED OFF DILAUDID FILTER TENDER JELLY. INFORMED PT BP WAS TOO LOW FOR FILTER TENDER JELLY AND WE WOULD RECHECK BP LATER TO SEE IF WE COULD TURN IT BACK ON. VERBALIZED UNDERSTANDING. WILL CTM
[2019-09-20 05:00] VITALS: BP 91/34
[2019-09-20 06:36] LABS: HEMATOCRIT 28.7 % (36.0-48.0); HEMOGLOBIN 9.2 g/dL (12-16); MCH 33.2 pg (26.0-34.0); MCHC 32.1 g/dL (31.0-37.0); MCV 103.6 fL (80.0-100.0); MEAN PLATELET VOLUME 10.2 fL (7.4-10.4); RBC 2.77 10x6/uL (4.00-5.40); RDW 13.6 % (11.5-14.5); WBC 8.4 10x3/uL (4.8-10.8)
--- NOTE | 2019-09-20 07:38 | NUR ---
PATIENT RECIEVED FROM PREVIOUS NURSE RESTING IN BED, POST OA RIGHT SHOULDER. CONTINUES TO REPORT PAIN. UNABLE TO TOLERATE SAP TREASURY CONSULTANT DUE TO LOW B/P. WILL GIVEN PO PAIN MEDICATIONS. CL IN REACH
[2019-09-20 08:31] VITALS: BP 109/44
--- NOTE | 2019-09-20 11:42 | OP ---
PATIENT NAME: KAREN HOLDER MEDICAL RECORD: [id number] :39 LOCATION:D.MS [id number] ADMISSION DATE:09/19/19 SURGEON: ALISHA JENKINS MD DATE OF OPERATION: 09/19/2019 PREOPERATIVE DIAGNOSIS: Chronic rotator cuff arthropathy of the right shoulder. POSTOPERATIVE DIAGNOSIS: Chronic rotator cuff arthropathy of the right shoulder. PROCEDURE: Right reverse total shoulder arthroplasty. SURGEON: Alisha Jenkins MD BEHAVIOUR SUPPORT TEACHER: Arsh Rodriguez APN INTRAOPERATIVE COMPLICATIONS: None. SUMMARY OF PATHOLOGIC FINDINGS: The patient had a rotator cuff tear arthropathy combined with severe glenohumeral arthrosis. IMPLANTS USED: Tornier perform reverse system, size 3 stem, standard tray lateralizing glenosphere 33 mm. A 6 mm insert and the appropriate screws at the baseplate. ESTIMATED BLOOD LOSS: 200 cc. OPERATIVE SUMMARY IN DETAIL: After obtaining the appropriate preoperative orthopedic surgery consent as well as anesthetic consultation, evaluation and clearance, the patient was brought to the operating room and placed on the operating table in a supine position. After general laryngeal mask airway was administered, the patient was placed in beach chair position. All pressure points were well padded. She was held firmly to the operating table using the vacuum pack suction system. Right upper extremity and shoulder were then prepped and draped in routine sterile fashion. Deltopectoral incision was made after the appropriate timeout taken down to level of the cephalic vein, which was identified and protected throughout the entire case. The deltoid was retracted laterally. The conjoined tendon was gently retracted medially. Subscapularis takedown peel was done and this was followed by complete dislocation of the shoulder into the incision. The posterior cuff tear and arthropathy was noted. Osteophytes were removed. Cut was made using the humeral cutting guide for perform system. Serial and sequential broaching was done for a size 3. The size 3 trial was left in place and the humeral head cutting protector was put into place on to the broach. Glenoid was then approached. Circumferential labrectomy was followed by central pin. Reaming was then followed by preparing the glenoid for Perform baseplate size 45 central screw x 6.5 was utilized. This was secured firmly to the glenoid and the peripheral screws were then put into place, resulting in excellent capture. At this point, the peripheral reaming device was utilized to clear away any bone; 33+3 glenosphere was locked into place with Franz taper and tamped screwed tamped screwed for excellent fixation. Attention was then returned to the proximal humerus. The size 3 stem with the standard metaphyseal component was tamped on the Franz taper and locked in. This was then put into place in the proximal humerus appropriate. Trials were undertaken. It was felt that the +6 was the most appropriate +[address], reduced, taken through range of OPERATIVE REPORT [id number] KAREN HOLDER FABBY motion and found to be stable in all planes. Subscapularis was then reapproximated to the lesser tuberosity using #2 Ethibond and transosseous fashion. The wound was irrigated and closed by Tahir Rodriguez using #1 Vicryl followed by skin alfredo. Sterile dressings were applied. The patient was awakened and taken to the recovery room in stable condition. All final needle and sponge counts were correct. TRANSINT:[id number] Voice Confirmation ID: [id number] DOCUMENT ID: [id number] ALICE RAMIREZ, ALISHA GALVAN at 1142 CC: [id number] DICTATION DATE: 09/19/19 1240 PRODUCT ASSURANCE ENGINEER: 09/19/19 1629 ADM IN [place] [id number] [place] [address]
[2019-09-20 13:36] VITALS: BP 122/89
--- NOTE | 2019-09-20 15:20 | NUR ---
OT NOTE: PT COMPLETED BED MOB WIT MIN A. PT COMPLETED EOB SITTING WITH CGA. PT COMPLETED HYGIENE TASKS WITH LUE REQUIRED MIN A. THANK YOU, DEYVI CALERO
--- NOTE | 2019-09-20 15:47 | NUR ---
PATIENT HAS ATTEMPTED TO VOID ON BED LOUIE WITH NO SUCCESS. NOT VOIDED SINCE LAST PM. NOTIFIED DR JENKINS WITH ORDER TO GIVE 500 ML FLUID BOLUS. BOLUS GIVEN WITH PATIENT TOLERATING WELL. IV RESTARTED TO RIGHT POSTERIOR FOREARM DUE TO UNABLE TO FLUSH AC AND LEAKING AT SITE.
--- NOTE | 2019-09-20 16:30 | NUR ---
Rehab Note- Acute Inpatient prescreen order received. THe patient has [employer] insurance and will require a PreAuth. PreAuth has been initiated. Will continue to follow at this time. THank you for this referral! Gabriela Vides RN Clinical Liaison, [facility]
--- NOTE | 2019-09-20 17:16 | NUR ---
PATIENT CONTINUES TO BE UNABLE TO VOID AFTER 500CC FLUID BOLUS GIVEN. IN AND OUT CATH PERFORMED WITH 300ML COLLECTED TO COLLECTION BAG
[2019-09-20 17:27] VITALS: BP 127/46
[2019-09-20 19:30] VITALS: BP 115/44
--- NOTE | 2019-09-20 19:30 | NUR ---
PT SITTING UP IN BED WITHOUT DISTRESS, AOX4. RIGHT ARM IN SLING. DRESSING CDI. IV LEFT FA INFUSING 1/2NS @ 75. PT ASSISTED ON AND OFF BED FOR BM. BED ALARM ON. DENIES NEEDS. CL IN REACH, WILL CTM
--- NOTE | 2019-09-20 21:15 | NUR ---
PT ASSISTED ON AND OFF BEDPAN. VOIDED AND HAD LIQUID BM. SHAI CARE PROVIDED. LINENS CHANGED. DENIES OTHER NEEDS. CL IN REACH, WILL CTM
[2019-09-21 00:30] VITALS: BP 110/46
--- NOTE | 2019-09-21 02:00 | NUR ---
PT STATES PAIN 04/27, GAVE PERCOCET ORDERED. DENIES OTHER NEEDS. CL IN REACH, WILL CTM
[2019-09-21 04:54] LABS: HEMATOCRIT 28.6 % (36.0-48.0); HEMOGLOBIN 9.3 g/dL (12-16); MCH 33.2 pg (26.0-34.0); MCHC 32.5 g/dL (31.0-37.0); MCV 102.1 fL (80.0-100.0); MEAN PLATELET VOLUME 10.7 fL (7.4-10.4); RBC 2.8 10x6/uL (4.00-5.40); RDW 13.3 % (11.5-14.5); WBC 8.4 10x3/uL (4.8-10.8)
[2019-09-21 05:00] VITALS: BP 118/52
[2019-09-21 07:43] LABS: ANION GAP 13.9 mmol/L (8-16); CARBON DIOXIDE 21.4 mmol/L (21.0-32.0); CREATININE - SERUM 1.7 mg/dL (0.6-1.3); POTASSIUM - SERUM 4.3 mmol/L (3.5-5.1)
[2019-09-21 08:11] VITALS: BP 155/62
[2019-09-21 12:30] VITALS: BP 108/51
[2019-09-21 13:54] LABS: % SATURATION 8 % (15-55); IRON 14 ug/dl (35-150); TOTAL IRON BIND CAPACITY 161 ug/dl (260-445); UNSAT IRON BIND CAPACITY 147 ug/dl (150-375)
--- NOTE | 2019-09-21 14:36 | NUR ---
PATIENT ASSISTED TO BED LOUIE SEVERAL TIMES WITH VOIDING AND LOOSE STOOLS. PAIN CONTROLED WITH PERCOCET.
--- NOTE | 2019-09-21 16:44 | NUR ---
OT NOTE: EXTENSIVE TMT TODAY. BED MOB WITH MOD ASSIST TO EOB. ATTEMPTED SEVERAL TIMES TO ELOISE PROSTHESIS, HOWEVER, L UE WITH EDEMA AND UNABLE TO LOCK IN PLACE. TRANSFERRED TO BS COMMODE WITH MAX ASSIST; FULL BATH WHILE ON BS COMMODE WITH MOD ASSIST AND EXT TIME. REPOSITIONED UE SLING; MAX ASSIST WITH TOILET HYGIENE ; TRANSFER BACK TO BED WITH MAX ASSIST; MOD ASSIST FOR POSITIONING. JACKELIN YEAGER, OTR/L
[2019-09-21 17:10] VITALS: BP 172/87
--- NOTE | 2019-09-21 18:56 | NUR ---
OT NOTE: PT COMPLETED BED MOB TASKS WITH MIN/MOD A. PT COMPLETED HYGIENE TASKS WITH MOD A. PT COMPLETED EOB SITTING WITH SBA. THANK YOU,DEYVI CALERO
[2019-09-21 21:57] VITALS: BP 164/57
--- NOTE | 2019-09-22 02:23 | NUR ---
alert and orented able to voice needs and wants. on room air, iv to left fr with 1/2ns at 75ml/hr. dressing and and sling in placer. 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 redness noted on inteara legs. call light and water in reach.
[2019-09-22 02:42] VITALS: BP 177/57
[2019-09-22 07:15] LABS: ANION GAP 14.9 mmol/L (8-16); CALCIUM 8.1 mg/dL (8.5-10.1); CARBON DIOXIDE 19.5 mmol/L (21.0-32.0); CREATININE - SERUM 1.4 mg/dL (0.6-1.3)
[2019-09-22 07:19] LABS: POTASSIUM - SERUM 4.4 mmol/L (3.5-5.1)
[2019-09-22 09:22] LABS: HEMATOCRIT 28.3 % (36.0-48.0); HEMOGLOBIN 9.6 g/dL (12-16); LYMPHOCYTES 10.4 % (15-50); MCH 33.8 pg (26.0-34.0); MCHC 33.9 g/dL (31.0-37.0); MEAN PLATELET VOLUME 10.1 fL (7.4-10.4); NEUTROPHILS 78.5 % (40-80); PLATELET COUNT 221 10x3/uL (130-400); RBC 2.84 10x6/uL (4.00-5.40); RDW 13.2 % (11.5-14.5); WBC 7.1 10x3/uL (4.8-10.8)
[2019-09-22 09:32] VITALS: BP 193/62
[2019-09-22 09:42] LABS: MCV 99.6 fL (80.0-100.0)
--- NOTE | 2019-09-22 10:29 | NUR ---
ALERT AND ORIENTED. HARD OF HEARING. LUNGS CLEAR BILATERALLY. HEART SOUNDS S1 AND S2 HEARD IN ALL CASTILLO. BOWEL SOUNDS ACTIVE X 4. LEFT BKA NOTED. 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 IV TO LFA PATENT WITHOUT REDNESS. DRSG TO RIGHT SHOULDER C/D/I. SLING IN PLACE. BED LOW. FALL PRECAUTIONS IN PLACE. CALL LYNN AND PERSONAL ITEMS IN REACH. WILL CONTINUE TO MONITOR.
--- NOTE | 2019-09-22 10:30 | NUR ---
ADDITION TO PREVIOUS NOTE. PATIENT C/O MOUTH PAIN. BLISTERS NOTED TO OUTSIDE OF MOUTH. FRANCIS CASTRO.
[2019-09-22 13:26] VITALS: Ht 149.9 cm; Wt 59.4 kg
[2019-09-22 14:02] VITALS: BP 169/54
--- NOTE | 2019-09-22 14:39 | NUR ---
OT NOTE: BED MOB WITH MOD ASSIST FOR SUPINE TO SIT; ATTEMPTED TO ELOISE PROSTHESIS AGAIN TODAY AND PT POINTED OUT LARGE BLISTERS ON INNER THIGHS. WHEN CHECKED, THERE WERE ALSO SOME NOTED ON L UE. STILL UNABLE TO ELOISE PROSTHESIS DUE TO EDEMA IN L LE. PERFORMED SIMPLE GROOMING TASKS .. PT REQUIRING EXT ASSIST WITH ADLS DUE TO IMMOBILITY OF R UE. JACKELIN YEAGER,OTR/L
--- NOTE | 2019-09-22 14:39 | NUR ---
OT NOTE: PT COMPLETED HYGIENE TASKS WITH MOD A. PT COMPLETED FACE WASH WITH SETUP. PT COMPLETED BRIDGING TECHNIQUE FOR INCREASED I WITH POSITIONING IN BED. THANK YOU, DEYVI CALERO
--- NOTE | 2019-09-22 14:45 | MORECARE ---
CASE MANAGEMENT DISCHARGE SUMMARY PATIENT: KAREN HOLDER UNIT: [id number] ADM DATE: 09/19/19 AGE: 79 : 39 SEX: F ROOM/BED: D.2213 AUTHOR: GAB MUNOZ PHYSICIAN: REFERRING PHYSICIAN: ALISHA JENKINS MD DATE OF SERVICE: 09/22/19 Discharge Plan Patient Name: KAREN HOLDER Facility: [facility]:[place] : 1940 Planned Disposition: [facility] Facility Anticipated Discharge Date: Discharge Date: Expected LOS: Initial Reviewer: [email or web address] Initial Review Date: 09/19/2019 Generated: 09/22/19 3:45 pm External Providers External Provider: [facility] Next Contact Date: Service Request Date: Service Type: Resolution: Reviewer: Comments: Patient Name: KAREN HOLDER Page [phone] at 1445 All edits/amendments must be made on the electronic document DICTATION DATE: 09/22/19 1445 DIGITAL CAMERA TECHNICIAN: JESSE 09/22/19 1445 RPT#: [id number] [place] DATE: STATUS: ADM IN [facility] [address] [place] [address] END OF REPORT
--- NOTE | 2019-09-22 14:54 | MORECARE ---
CASE MANAGEMENT DISCHARGE SUMMARY PATIENT: KAREN HOLDER UNIT: [id number] ADM DATE: 09/19/19 AGE: 79 : 39 SEX: F ROOM/BED: D.2213 AUTHOR: TAMMYDOC PHYSICIAN: REFERRING PHYSICIAN: ALISHA JENKINS MD DATE OF SERVICE: 09/22/19 Discharge Plan Patient Name: KAREN HOLDER Facility: [facility]:[place] : 1940 Planned Disposition: Senior Care Facility Anticipated Discharge Date: Discharge Date: Expected LOS: Initial Reviewer: [email or web address] Initial Review Date: 09/19/2019 Generated: 09/22/19 3:54 pm Comments DCP- Discharge Planning Updated by [id number]: Esperanza Crowell on 09/22/19 1:[address] Patient Name: KAREN HOLDER Admission Status: Elective Accout number: [id number] Admission Date: 09-19-2019 : 1940 Admission Diagnosis: Attending: ALISHA JENKINS Current LOS: 3 Anticipated DC Date: Planned Disposition: Senior Care Facility Primary Insurance: [employer] ADV Discharge Planning Comments: CM met with patient to complete initial dc planning assessment. CM educated patient on the CM role and verbal consent given by patient to complete assessment. Patient lives at home with her son and grandson's where she is independent with her care. At discharge patient would like to go to [facility] and feels this is a safe discharge. CM discussed availability of home health, rehab services, and medical equipment. She has a prosthetic, walker, wheelchair, shower chair and ramp at home. She is current with [facility]. [facility]HUL for [facility] I sent the referral. Patient denied known discharge needs at this time. CM will continue to follow and will assist as needed with dc plans/needs. Excelsior Machine Tender: Esperanza Crowell DCPIA - Discharge Planning Initial Assessment Updated by [id number]: Esperanza Crowell on 09/22/19 2:45 pm * Is the patient Alert and Oriented? Yes * How many steps to enter\exit or inside your home? RAMP * PCP DARLEEN * Pharmacy [address] * Preadmission Environment Home with Family * ADLs Independent * Equipment Bedside Commode Rolling Walker Shower Chair Walker Wheelchair * List name and contact numbers for known caregivers / representatives who currently or will assist patient after discharge: KISHA SALMON) [phone] * Community resources currently utilized Home Health * Please name any agencies selected above. [facility] * Additional services required to return to the preadmission environment? Yes * Can the patient safely return to the preadmission environment? No * Has this patient been hospitalized within the prior 30 days at any hospital? No Coverage Notice Reviewer: [id number] Ken Crowell Notice Issued Date-Time: 09/22/2019 14:40 Notice Type: Patient Choice Letter Notice Delivered To: Patient Relationship to Patient: Phone Triage Specialist Name: Delivery Method: HAND - Hand Delivered Rajani Days: Prior Verbal Notification: Recipient Understood Notice: Yes Recipient Signature: Yes Med Rec Note Co-signed by Attending: Coverage Notice Comment: rahul Schafer susy clemente Perez DP export: 09/22/19 1:45 p Patient Name: KAREN HOLDER Page 10096 at 1454 All edits/amendments must be made on the electronic document DICTATION DATE: 09/22/191453 MEDIA OPERATOR: JESSE 09/22/191453 RPT#: [id number] DC DATE: STATUS: ADM IN [facility] [address] [place] [address] END OF REPORT
--- NOTE | 2019-09-22 15:00 | NUR ---
CALLED PHARMACY FOR ONCOLOGY MOUTH WASH.
--- NOTE | 2019-09-22 15:33 | NUR ---
CALLED PHARMACY FOR ONCOLOGY MOUTH WASH. PATIENT DENIES NEEDS. RESTING IN BED. WILL CONTINUE TO MONITOR.
--- NOTE | 2019-09-22 16:51 | NUR ---
RESTING IN BED. DENIES NEEDS. WILL CONTINUE TO MONITOR.
--- NOTE | 2019-09-22 18:06 | NUR ---
RESTING IN BED. DENIES NEEDS. IV TO LFA PATENT WITHOUT REDNESS. BED LOW. FALL PRECAUTIONS IN PLACE. CALL LYNN AND PERSONAL ITEMS IN REACH.
[2019-09-22 18:48] VITALS: BP 154/52
[2019-09-22 20:00] VITALS: BP 166/55
[2019-09-23] VITALS: BP 175/68
[2019-09-23 04:00] VITALS: BP 177/55
[2019-09-23 07:00] LABS: BASOPHILS 0.2 % (0-2); EOSINOPHILS 0.2 % (0-7); HEMATOCRIT 26.9 % (36.0-48.0); HEMOGLOBIN 8.7 g/dL (12-16); IMMATURE GRANULOCYTES 1.1 % (0-5); LYMPHOCYTES 13.5 % (15-50); MCH 32.3 pg (26.0-34.0); MCHC 32.3 g/dL (31.0-37.0); MEAN PLATELET VOLUME 10.6 fL (7.4-10.4); MONOCYTES 9.9 % (2-11); NEUTROPHILS 75.1 % (40-80); RBC 2.69 10x6/uL (4.00-5.40); RDW 13.6 % (11.5-14.5)
[2019-09-23 07:06] LABS: ANION GAP 12.4 mmol/L (8-16); CALCIUM 8.5 mg/dL (8.5-10.1); CARBON DIOXIDE 21.9 mmol/L (21.0-32.0); CREATININE - SERUM 1.1 mg/dL (0.6-1.3); POTASSIUM - SERUM 4.3 mmol/L (3.5-5.1)
[2019-09-23 07:09] LABS: PLATELET COUNT 276 10x3/uL (130-400); WBC 4.4 10x3/uL (4.8-10.8)
--- NOTE | 2019-09-23 07:15 | NUR ---
SPOKE WITH FRANCIS THAKUR ABOUT STARTING PAIN MEDICATION FOR PATIENT. ONLY TYLENOL ON DEC. STATES NOT SURE WHY PERCOCET ON HOLD BUT WILL CHECK WITH MD TO START PAIN MEDICATION.
--- NOTE | 2019-09-23 07:24 | NUR ---
ALERT AND ORIENTED. LUNGS CLEAR BILATERALLY. HEART SOUNDS S1 AND S2 HEARD IN ALL CASTILLO. BOWEL SOUNDS ACTIVE X 4. OLD LEFT BKA NOTED. ALL TOES ON RIGHT FOOT EXCEPT RIGHT GREAT TOE PREVIOUSLY AMPUTATED. BLISTERS NOTED TO INNER THIGHS AND LEFT UPPER ARM. SORES TO MOUTH. PATIENT GETTING ONCOLOGY MOUTHWASH FOR MOUTH SORES. IV TO LFA PATENT WITHOUT REDNESS. INCISION TO RIGHT SHOULDER WITH DRSG C/D/I. SLING IN PLACE. PATIENT DENIES NEEDS. BED LOW. FALL PRECAUTIONS IN PLACE. CALL LYNN AND PERSONAL ITEMS IN REACH. WILL CONTINUE TO MONITOR.
[2019-09-23 08:12] VITALS: BP 147/93
[2019-09-23] MEDS ORDERED: SMZ-TMP DS 800-1 TAB PO (11:44)
[2019-09-23] MEDS ORDERED: HYDROCODON-ACE1 EA10 PO (11:44)
--- NOTE | 2019-09-23 13:06 | NUR ---
SITTING IN BED EATING LUNCH. DENIES NEEDS. WILL CONTINUE TO MONITOR.
[2019-09-23 13:21] VITALS: BP 160/70
--- NOTE | 2019-09-23 15:26 | NUR ---
OT NOTE: PT COMPLETED BED MOB TASKS WITH CGA. PT COMPLETED SUPINE TO SIT WITH MIN A. PT COMPLETED LB HYGIENE TASKS WITH MAX A. PT COMPLETED FACE WASH WITH SET UP. PT COMPLETED HAND HYGIENE WITH SET UP. PT COMPLETED RUE POSITIONING. THANK YOU,DEYVI CLAERO
[2019-09-23 16:29] VITALS: BP 137/50
--- NOTE | 2019-09-23 16:32 | NUR ---
DRSG CHANGED TO RIGHT SHOULDER WITH AQUACEL AG PER ORDER FOR DISCHARGE. INCISION SITE C/D/I. NO SIGNS OR SYMPTOMS OF INFECTION NOTED.
[2019-09-23 20:00] VITALS: BP 135/61
[2019-09-24] VITALS: BP 136/58
[2019-09-24 04:00] VITALS: BP 108/46
[2019-09-24 05:24] LABS: BASOPHILS 0.2 % (0-2); EOSINOPHILS 0.2 % (0-7); HEMATOCRIT 25.8 % (36.0-48.0); HEMOGLOBIN 8.5 g/dL (12-16); LYMPHOCYTES 18.9 % (15-50); MCH 32.7 pg (26.0-34.0); MCHC 32.9 g/dL (31.0-37.0); MCV 99.2 fL (80.0-100.0); MEAN PLATELET VOLUME 10.5 fL (7.4-10.4); MONOCYTES 11.6 % (2-11); NEUTROPHILS 67.1 % (40-80); PLATELET COUNT 315 10x3/uL (130-400); RDW 13.6 % (11.5-14.5); WBC 4.6 10x3/uL (4.8-10.8)
[2019-09-24 05:26] LABS: ANION GAP 13.3 mmol/L (8-16); CALCIUM 8.4 mg/dL (8.5-10.1); CARBON DIOXIDE 23.9 mmol/L (21.0-32.0); CREATININE - SERUM 1.2 mg/dL (0.6-1.3); POTASSIUM - SERUM 4.2 mmol/L (3.5-5.1)
--- NOTE | 2019-09-24 08:00 | NUR ---
AWAKE AND ALERT. ORIENTED X3. NO C/O AT THIS TIME. REFUSED TO EAT BREAKFAST BUT WILL DRINK ENSURE. LUNGS ARE CLEAR BIALTERALLY, NO COUGH NOTED. SKIN IS INTACT WITHOUT REDNESS EXCEPT INCISION TO RIGHT SHOULDER WHICH HAS A DRY INTACT DRESSING IN PLACE. MOVES DIGITS FREELY. SKIN IS WARM AND DRY. IV TO LEFT FOREARM IS PATENT WITHOUT REDNESS AT INSERTION SITE. DENIES NEEDS.
[2019-09-24 08:18] VITALS: BP 161/55
--- NOTE | 2019-09-24 10:30 | NUR ---
REQUESTED AND GIVNE 50MG ULTRAM SLOW IVP FOR C/O RIGHT SHOULDER PAIN LEVEL 8. WILL MONITOR.
[2019-09-24 13:11] VITALS: BP 135/55
--- NOTE | 2019-09-24 16:34 | MORECARE ---
CASE MANAGEMENT DISCHARGE SUMMARY PATIENT: KAREN HOLDER UNIT: [id number] ADM DATE: 09/19/19 AGE: 79 : 39 SEX: F ROOM/BED: D.2213 AUTHOR: TAMMYDOC PHYSICIAN: REFERRING PHYSICIAN: ALISHA JENKINS MD DATE OF SERVICE: 09/24/19 Discharge Plan Patient Name: KAREN HOLDER Facility: [facility]:[place] : 1940 Planned Disposition: [facility] Facility Anticipated Discharge Date: Discharge Date: Expected LOS: Initial Reviewer: [id number] Initial Review Date: 09/19/2019 Generated: 09/24/19 5:33 pm DCP- Discharge Planning Updated by [id number]: Esperanza Crowell on 09/22/19 1:[address] Patient Name: KAREN HOLDER Admission Status: Elective Accout number: [id number] Admission Date: 09-19-2019 : 1940 Admission Diagnosis: Attending: ALISHA JENKINS Current LOS: 3 Anticipated DC Date: Planned Disposition: [facility] Facility Primary Insurance: [employer] ADV Discharge Planning Comments: CM met with patient to complete initial dc planning assessment. CM educated patient on the CM role and verbal consent given by patient to complete assessment. Patient lives at home with her son and grandson's where she is independent with her care. At discharge patient would like to go to [facility] and feels this is a safe discharge. CM discussed availability of home health, rehab services, and medical equipment. She has a prosthetic, walker, wheelchair, shower chair and ramp at home. She is current with [facility]. [facility] for [facility] re[facility] I sent the referral. Patient denied known discharge needs at this time. CM will continue to follow and will assist as needed with dc plans/needs. Digital Editor: Esperanza Crowell DCPIA - Discharge Planning Initial Assessment Updated by [email or web address]: Esperanza Crowell on 09/22/19 2:45 pm * Is the patient Alert and Oriented? Yes * How many steps to enter\exit or inside your home? RAMP * PCP DARLEEN * Pharmacy [address] * Preadmission Environment Home with Family * ADLs Independent * Equipment Bedside Commode Rolling Walker Shower Chair Walker Wheelchair * List name and contact numbers for known caregivers / representatives who currently or will assist patient after discharge: KISHA SALMON) [phone] * Community resources currently utilized Home Health * Please name any agencies selected above. [facility] * Additional services required to return to the preadmission environment? Yes * Can the patient safely return to the preadmission environment? No * Has this patient been hospitalized within the prior 30 days at any hospital? No Coverage Notice Reviewer: [id number] Ken Crowell Notice Issued Date-Time: 09/22/2019 14:40 Notice Type: Patient Choice Letter Notice Delivered To: Patient Relationship to Patient: Conditioning Machine Operator Name: Delivery Method: HAND - Hand Delivered Rajani Days: Prior Verbal Notification: Recipient Understood Notice: Yes Recipient Signature: Yes Med Rec Note Co-signed by Attending: Coverage Notice Comment: rahul Schafer susy clemente Perez DP export: 09/22/19 1:54 p Patient Name: KAREN HOLDER Page [phone] at 1634 All edits/amendments must be made on the electronic document DICTATION DATE: 09/24/19 1633 READING INTERVENTION TEACHER: JESSE 09/24/19 1633 RPT#: [id number] DC DATE: STATUS: ADM IN [facility] [address] [place] [address] END OF REPORT
[2019-09-24 17:09] VITALS: BP 146/47
--- NOTE | 2019-09-24 18:24 | NUR ---
ATE ABOUT 25% OF SUPPER. NO CHANGES NOTED. DENIES NEEDS. FAMILY AT BEDSIDE.
[2019-09-24 20:00] VITALS: BP 116/49
[2019-09-25 04:00] VITALS: BP 158/66
[2019-09-25 06:46] LABS: BASOPHILS 0.3 % (0-2); EOSINOPHILS 3.6 % (0-7); HEMATOCRIT 26.5 % (36.0-48.0); HEMOGLOBIN 8.4 g/dL (12-16); IMMATURE GRANULOCYTES 3.6 % (0-5); LYMPHOCYTES 17.9 % (15-50); MCH 32.1 pg (26.0-34.0); MCHC 31.7 g/dL (31.0-37.0); MCV 101.1 fL (80.0-100.0); MEAN PLATELET VOLUME 10.3 fL (7.4-10.4); MONOCYTES 10.8 % (2-11); NEUTROPHILS 63.8 % (40-80); PLATELET COUNT 319 10x3/uL (130-400); RBC 2.62 10x6/uL (4.00-5.40); RDW 13.8 % (11.5-14.5)
[2019-09-25 06:56] LABS: ANION GAP 11.5 mmol/L (8-16); CALCIUM 8.5 mg/dL (8.5-10.1); CREATININE - SERUM 1.3 mg/dL (0.6-1.3); POTASSIUM - SERUM 4.5 mmol/L (3.5-5.1)
--- NOTE | 2019-09-25 07:57 | NUR ---
AWAKE AND ALERT. ORIENTED X3. NO C/O AT THIS TIME. LUNGS ARE CLEAR BILATERALLY, NO COUGH NOTED. SKIN IS INTACT WITHOUT REDNESS EXCEPT INCISION TO RIGHT SHOULDER/ARM AND BLISTERS TO LEFT SIDE, THESE ARE MOSTLY POPPED. WILL MONITOR. SOME REDNESS TO SHAI AREA NOTED. BUTT BALM TO SAME. SL TO LEFT FOREARM IS PATENT WITHOUT REDNESS AT INSERTION SITE. ON BEDPAN AT THIS TIME. FAMILY AT BEDSIDE. DENEIES NEED.S
[2019-09-25 08:43] VITALS: BP 173/66
--- NOTE | 2019-09-25 10:00 | NUR ---
ATE SOME OF BREAKFAST AND DRANK ALL OF ENSURE. DENIES NEEDS. PAIN IMPROVED AFTER PERCOCET.
[2019-09-25 12:27] VITALS: BP 155/56
--- NOTE | 2019-09-25 12:30 | NUR ---
LUNCH SERVED IN ROOM. DENIES NEEDS. FAMILY IN ROOM.
--- NOTE | 2019-09-25 15:15 | NUR ---
REQUESTED DRESSING TO BLISTER ON LEFT INNER THIGH AREA. NON ADHERENT PAD APPLIED TO SAME. DENIES NEEDS.
[2019-09-25 16:57] VITALS: BP 149/66
--- NOTE | 2019-09-25 18:28 | NUR ---
ATE ABOUT HALF OF SUPPER TRAY. FAMILY ATE PART OF TRAY. NO CHANGES NOTED. DENIES NEEDS.
[2019-09-25 20:00] VITALS: BP 152/67
[2019-09-26 04:00] VITALS: BP 149/60
[2019-09-26 06:04] LABS: BASOPHILS 0.3 % (0-2); EOSINOPHILS 3.4 % (0-7); HEMATOCRIT 27.8 % (36.0-48.0); HEMOGLOBIN 8.9 g/dL (12-16); IMMATURE GRANULOCYTES 6.1 % (0-5); LYMPHOCYTES 14.7 % (15-50); MCH 32.5 pg (26.0-34.0); MCV 101.5 fL (80.0-100.0); MEAN PLATELET VOLUME 10.6 fL (7.4-10.4); MONOCYTES 11.4 % (2-11); NEUTROPHILS 64.1 % (40-80); RBC 2.74 10x6/uL (4.00-5.40); RDW 14.1 % (11.5-14.5); WBC 7.8 10x3/uL (4.8-10.8)
[2019-09-26 06:07] LABS: PLATELET COUNT 228 10x3/uL (130-400)
[2019-09-26 06:15] LABS: ANION GAP 16.5 mmol/L (8-16); CALCIUM 7.9 mg/dL (8.5-10.1); CARBON DIOXIDE 23.5 mmol/L (21.0-32.0); CREATININE - SERUM 1.3 mg/dL (0.6-1.3)
[2019-09-26 08:20] VITALS: BP 146/68
[2019-09-26 12:55] VITALS: BP 175/77
--- NOTE | 2019-09-26 14:32 | NUR ---
OT NOTE: PT COMPLETED BED MOB WITH MIN A. PT COMPLETED EOB SITTING WITH SBA. PT COMPLETED UB HYGIENE TASKS WITH SET UP. THANK YOU,DEYVI NUR
--- NOTE | 2019-09-26 14:33 | NUR ---
OT NOTE: PT BECOMING VERY FRUSTRATED WITH BLISTERS ON BODY AND LE EDEMA. BLISTERS ARE OPENING DURING MOVEMENT AND ARE VERY PAINFUL TO PATIENT. MOD ASSIST IWTH BED MOB INCLUDING SUPINE TO SIT; SITTING BALANCE IS GOOD ON EOB. MAX ASSIST TO ELOISE AND DOFF GOWN. CONTINUES TO BE UNABLE TO ELOISE PROSTHESIS DUE TO EDEMA IN LLE. REMOVED SLING AND PERFORMED GENTLE PROM TO R UE; PT WITH INCREASED PAIN AND DECREASED ACTIVE MOVEMENT IN ELBOW FLEX..PT CURRENTLY APPROX -20 DEGREES WITH R ELBOW EXT. WRIST AND FINGER MOVEMENT ARE WFLS. PT REQUIRED MAX ASSIST TO TRANSFER FROM BED TO CHAIR. PROVIDED PT IWTH EGG CRATE CUSHION FOR CHAIR DUE TO BLISTERS ON BOTTOM. MAX ASSIST X 2 TO REPOSITION IN CHAIR; TRANSFERRED BACK TO BED WITH MAX ASSIST. REPOSITIONED IN BED WITH MAX ASSIST X 2. PT UNABLE TO WEAR TIMBER TRIMMER SOCK DUE TO BLISTERS. JACKELIN YEAGER, OTR/L
--- NOTE | 2019-09-26 15:30 | NUR ---
Nutrition follow-up: Diet: REguloar PO intake ~50% of meals Labs reviewed Wt: 131# Will encourage increased po intake RDN following.
--- NOTE | 2019-09-26 15:56 | NUR ---
Fluid filled blisters are noted on arms, back of legs and back. Some have ruptured. No odor, redness or edema noted. Ruptured areas are being covered with nonadherent gauze. Wound care will continue monitoring.
[2019-09-26 16:36] VITALS: BP 133/55
--- NOTE | 2019-09-26 19:26 | NUR ---
ASSESSMENT COMPLETED JESSIE AM. SHE IS WITHOUT DISTRESS.FRANCO WITH WOUND CARE SEEN PT TODAY,RE... BLISTERS ON BODY. SHE HAS REMAINED WITHOUT CHANGE TODAY. CONT PLAN OF CARE
[2019-09-26 20:00] VITALS: BP 136/55
--- NOTE | 2019-09-26 20:00 | NUR ---
PT REQUESTING PAIN MEDICATION BEFORE SHE GOES TO BED. PERCOCET GIVEN ORDERED. PT DENIES FURTHER NEEDS. VITAL SIGNS STABLE. VINOD ALARM ON, BED LOW AND CALL LIGHT WITHIN REACH.
[2019-09-27 04:00] VITALS: BP 147/56
[2019-09-27 06:37] LABS: ALBUMIN 2.3 g/dL (3.4-5.0); ANION GAP 10.9 mmol/L (8-16); BILIRUBIN - TOTAL 0.31 mg/dL (0.2-1.3); CALCIUM 8.2 mg/dL (8.5-10.1); CARBON DIOXIDE 28.3 mmol/L (21.0-32.0); CREATININE - SERUM 1.6 mg/dL (0.6-1.3); POTASSIUM - SERUM 5.2 mmol/L (3.5-5.1); PROTEIN - SERUM 5.5 g/dL (6.4-8.2)
[2019-09-27 06:46] LABS: HEMATOCRIT 27.3 % (36.0-48.0); HEMOGLOBIN 8.6 g/dL (12-16); MCH 32.2 pg (26.0-34.0); MCHC 31.5 g/dL (31.0-37.0); MCV 102.2 fL (80.0-100.0); MEAN PLATELET VOLUME 10.5 fL (7.4-10.4); RBC 2.67 10x6/uL (4.00-5.40); RDW 14.1 % (11.5-14.5); WBC 9.2 10x3/uL (4.8-10.8)
[2019-09-27 07:00] LABS: PLATELET COUNT 376 10x3/uL (130-400)
[2019-09-27 07:48] LABS: EOSINOPHILS 4 % (0-7); LYMPHOCYTES 10 % (15-50); MONOCYTES 7 % (2-11); NEUTROPHILS 73 % (40-80); PLATELET ESTIMATE NORMAL
--- NOTE | 2019-09-27 08:48 | MORECARE ---
CASE MANAGEMENT DISCHARGE SUMMARY PATIENT: KAREN HOLDER UNIT: [id number] ADM DATE: 09/19/19 AGE: 79 : 39 SEX: F ROOM/BED: D.2213 AUTHOR: GAB MUNOZ PHYSICIAN: REFERRING PHYSICIAN: ALISHA JENKINS MD DATE OF SERVICE: 09/27/19 Discharge Plan Patient Name: KAREN HOLDER Facility: [facility]:[place] : 1940 Planned Disposition: [facility] Facility Anticipated Discharge Date: Discharge Date: Expected LOS: Initial Reviewer: [id number] Initial Review Date: 09/19/2019 Generated: 09/27/19 9:48 am Comments DCP- Discharge Planning Updated by [email or web address]: Esperanza Crowell on 09/27/19 7:[address] Patient has been accepted to [facility] they will pick her up at 10:00. IMM served and explained. CM to follow and assist as needed. DCP- Discharge Planning Updated by [email or web address]: Esperanza Crowell on 09/22/19 1:[address] Patient Name: KAREN HOLDER Admission Status: Elective Accout number: [id number] Admission Date: 09-19-2019 : 1940 Admission Diagnosis: Attending: ALISHA JENKINS Current LOS: 3 Anticipated DC Date: Planned Disposition: [facility] Facility Primary Insurance: [employer] ADV Discharge Planning Comments: CM met with patient to complete initial dc planning assessment. CM educated patient on the CM role and verbal consent given by patient to complete assessment. Patient lives at home with her son and grandson's where she is independent with her care. At discharge patient would like to go to [facility] and feels this is a safe discharge. CM discussed availability of home health, rehab services, and medical equipment. She has a prosthetic, walker, wheelchair, shower chair and ramp at home. She is current with [facility]. [facility] for [facility] I sent the referral. Patient denied known discharge needs at this time. CM will continue to follow and will assist as needed with dc plans/needs. Manager Application Development: Esperanza Crowell DCPIA - Discharge Planning Initial Assessment Updated by [email or web address]: Esperanza Crowell on 09/22/19 2:45 pm * Is the patient Alert and Oriented? Yes * How many steps to enter\exit or inside your home? RAMP * PCP DARLEEN * Pharmacy [address] * Preadmission Environment Home with Family * ADLs Independent * Equipment Bedside Commode Rolling Walker Shower Chair Walker Wheelchair * List name and contact numbers for known caregivers / representatives who currently or will assist patient after discharge: KISHA SALMON) [phone] * Community resources currently utilized Home Health * Please name any agencies selected above. [facility] * Additional services required to return to the preadmission environment? Yes * Can the patient safely return to the preadmission environment? No * Has this patient been hospitalized within the prior 30 days at any hospital? No Coverage Notice Reviewer: [id number] Ken Crowell Notice Issued Date-Time: 09/22/2019 14:40 Notice Type: Patient Choice Letter Notice Delivered To: Patient Relationship to Patient: Funeral Pre Need Consultant Name: Delivery Method: HAND - Hand Delivered Rajani Days: Prior Verbal Notification: Recipient Understood Notice: Yes Recipient Signature: Yes Med Rec Note Co-signed by Attending: Coverage Notice Comment: rahul Churchill Reviewer: [id number] Ken Crowell Notice Issued Date-Time: 09/27/2019 8:40 Notice Type: IM Discharge Notice Notice Delivered To: Patient Relationship to Patient: Funeral Pre Need Consultant Name: Delivery Method: HAND - Hand Delivered Rajani Days: Prior Verbal Notification: Recipient Understood Notice: Yes Recipient Signature: Yes Med Rec Note Co-signed by Attending: Coverage Notice Comment: Last DP export: 09/24/19 3:34 p Patient Name: KAREN HOLDER Page [phone] at 0848 All edits/amendments must be made on the electronic document DICTATION DATE: 09/27/19847 TUNNEL ELASTIC OPERATOR CHAINSTITCH: JESSE 09/27/19847 RPT#: [id number] DC DATE: STATUS: ADM IN [facility] [address] [facility] [place] [address] END OF REPORT
[2019-09-27 09:52] VITALS: BP 151/62
--- NOTE | 2019-09-27 10:00 | NUR ---
PATIENT RECIEVED DC INSTRUCTIONS. VERBALIZED UNDERSTANDING. IV REMOVED WITH CATH TIP INTACT. DRESSED PATIENT AT THIS TIME. GATHERED BELONGINGS AND PLACED IN BAG. CALL LIGHT WITHIN REACH. AWAITING TRANSPORTATION FOR DC.
--- NOTE | 2019-09-27 11:45 | NUR ---
PATIENT ASSISTED TO WC BY BEULAH HUGGINS FOR TRANSPORATION TO R. PATIENT ESCORTED OUT OF HOSPITAL VIA WC WITH WALKER, PROTHESIS, PHONE, GLASSES, GOLF CART MAKER, AND OTHER PERSONAL BELONINGS BY LHR INVESTMENT ASSOCIATE AND RN.
--- NOTE | 2019-09-27 11:50 | NUR ---
REPORT CALLED TO GENARO AT [facility].
--- NOTE | 2019-09-27 11:53 | NUR ---
TRIED TO CALL GRANDDAUGHTER WESTLEY PEREZ TO NOTIFY THAT PATIENT WNE TO R. NO ANSWER AT THIS TIME. WILL TRY LATER.
--- NOTE | 2019-09-27 13:34 | MORECARE ---
CASE MANAGEMENT DISCHARGE SUMMARY PATIENT: KAREN HOLDER UNIT: [id number] ADM DATE: 09/19/19 AGE: 79 : 38 SEX: F ROOM/BED: D.2213 AUTHOR: TAMMY,DOC PHYSICIAN: REFERRING PHYSICIAN: ALISHA JENKINS MD DATE OF SERVICE: 09/27/19 Discharge Plan Patient Name: KAREN HOLDER Facility: [facility]:[place] : 1940 Planned Disposition: [facility] Facility Anticipated Discharge Date: Discharge Date: 09/27/2019 Expected LOS: Initial Reviewer: [email or web address] Initial Review Date: 09/19/2019 Generated: 09/27/19 2:33 pm Comments DCP- Discharge Planning Updated by [email or web address]: Esperanza Crowell on 09/27/19 12:[address] PATIENT WENT TO A SKILLED BED DCP- Discharge Planning Updated by [email or web address]: Esperanza Crowell on 09/27/19 7:[address] Patient has been accepted to [facility] they will pick her up at 10:00. IMM served and explained. CM to follow and assist as needed. DCP- Discharge Planning Updated by [email or web address]: Esperanza Crowell on 09/22/19 1:[address] Patient Name: KAREN HOLDER Admission Status: Elective Accout number: [id number] Admission Date: 09-19-2019 : 1940 Admission Diagnosis: Attending: ALISHA JENKINS Current LOS: 3 Anticipated DC Date: Planned Disposition: [facility] Facility Primary Insurance: [employer] ADV Discharge Planning Comments: CM met with patient to complete initial dc planning assessment. CM educated patient on the CM role and verbal consent given by patient to complete assessment. Patient lives at home with her son and grandson's where she is independent with her care. At discharge patient would like to go to [facility] and feels this is a safe discharge. CM discussed availability of home health, rehab services, and medical equipment. She has a prosthetic, walker, wheelchair, shower chair and ramp at home. She is current with [facility]. RAHUL for [facility] I sent the referral. Patient denied known discharge needs at this time. CM will continue to follow and will assist as needed with dc plans/needs. Library Associate: Esperanza Crowell DCPIA - Discharge Planning Initial Assessment Updated by [email or web address]: Esperanza Crowell on 09/22/19 2:45 pm * Is the patient Alert and Oriented? Yes * How many steps to enter\exit or inside your home? RAMP * PCP PARZULMA * Pharmacy [address] * Preadmission Environment Home with Family * ADLs Independent * Equipment Bedside Commode Rolling Walker Shower Chair Walker Wheelchair * List name and contact numbers for known caregivers / representatives who currently or will assist patient after discharge: KISHA SALMNO) [phone] * Community resources currently utilized Home Health * Please name any agencies selected above. [facility] * Additional services required to return to the preadmission environment? Yes * Can the patient safely return to the preadmission environment? No * Has this patient been hospitalized within the prior 30 days at any hospital? No Coverage Notice Reviewer: [id number] Ken Crowell Notice Issued Date-Time: 09/22/2019 14:40 Notice Type: Patient Choice Letter Notice Delivered To: Patient Relationship to Patient: [employer] Name: Delivery Method: HAND - Hand Delivered Rajani Days: Prior Verbal Notification: Recipient Understood Notice: Yes Recipient Signature: Yes Med Rec Note Co-signed by Attending: Coverage Notice Comment: rahul Churchill Reviewer: [email or web address] Ken Crowell Notice Issued Date-Time: 09/27/2019 8:40 Notice Type: IM Discharge Notice Notice Delivered To: Patient Relationship to Patient: [employer] Name: Delivery Method: HAND - Hand Delivered Rajani Days: Prior Verbal Notification: Recipient Understood Notice: Yes Recipient Signature: Yes Med Rec Note Co-signed by Attending: Coverage Notice Comment: Last DP export: 09/27/19 7:48 Patient Name: KAREN HOLDER Page [phone] at 1334 All edits/amendments must be made on the electronic document DICTATION DATE: 09/27/19 1333 EM PHYSICIAN: JESSE 09/27/19 1333 RPT#: [id number] DC DATE:09/27/19 STATUS: DIS IN [place] [id number] [facility], [facility]901 END OF REPORT
== END 2019-09-27 13:14 | DRG 483 ==
LOC: D.MS 09-19 07:37 → D.SDCHOLD 09-19 07:37 → D.MS 09-19 13:44 → D.SDCHOLD 09-19 13:45 → D.MS 09-27 13:14
PROVIDERS: Emergency Medicine; Internal Medicine Nephrology; ADMIT Orthopaedic Surgery; ATTEND Orthopaedic Surgery
PROC: 0RRJ00Z Replacement of Right Shoulder Joint with Reverse Ball and Socket Synthetic Substitute, Open Approach (ICD-10-PCS; principal; 2019-09-19 09:45)
DX: M75.101 Unspecified rotator cuff tear or rupture of right shoulder, not specified as traumatic (principal); L03.116 Cellulitis of left lower limb; E87.1 Hypo-osmolality and hyponatremia; M19.011 Primary osteoarthritis, right shoulder; I12.9 Hypertensive chronic kidney disease with stage 1 through stage 4 chronic kidney disease, or unspecified chronic kidney disease; E11.22 Type 2 diabetes mellitus with diabetic chronic kidney disease; N18.9 Chronic kidney disease, unspecified; E03.9 Hypothyroidism, unspecified; D50.9 Iron deficiency anemia, unspecified; I25.10 Atherosclerotic heart disease of native coronary artery without angina pectoris; M54.9 Dorsalgia, unspecified; T50.905A Adverse effect of unspecified drugs, medicaments and biological substances, initial encounter; Z95.0 Presence of cardiac pacemaker

== ENCOUNTER → 2020-06-05 14:11 | Outpatient (CLI) | payer MEDICARE, MEDICAID ==
[2019-09-22 13:26] VITALS: BMI 26.4
[~2020-06-05 14:11] MED LIST changes: +FERROUS SULFAT325 MG PO; +FOLIC ACID1 MG PO; +HYDROCODON-ACE1 EA10 PO; +SMZ-TMP DS 800-1 TAB PO
== END | disposition home or self-care (01) ==
LOC: D.MRI 14:11
PROVIDERS: ATTEND Orthopaedic Surgery
DX: M54.12 Radiculopathy, cervical region (principal)